=== PATIENT | male | born 1935 | race Caucasian/White ===

== ENCOUNTER → 2017-04-04 | Day surgery (SDC) | payer MEDICARE, BC ==
[2017-04-02 10:41] LABS: BASOPHILS % 0.4 % (0.0-1.0); EOSINOPHILS % 0.6 % (0.0-6.0); HEMATOCRIT 35.4 % (38.2-49.6); HEMOGLOBIN 11.6 g/dL (14.0-18.0); LYMPHOCYTES # (AUTO) 0.4 (1.0-3.2); LYMPHOCYTES % 8.4 % (18.0-39.1); MEAN CORPUSCULAR HEMOGLOBIN 34.9 pg (28-32); MEAN CORPUSCULAR HGB CONC 32.8 g/dL (31-35); MEAN CORPUSCULAR VOLUME 106.6 fL (81-99); MONOCYTES # (AUTO) 0.3 (0.2-0.8); MONOCYTES % 6.9 % (4.4-11.3); NEUTROPHILS # (AUTO) 3.9 (2.1-6.9); NEUTROPHILS % 82.8 % (38.7-80.0); PLATELET COUNT 157 x10e3/uL (140-360); RED BLOOD COUNT 3.32 x10e6/uL (4.3-5.7); RED CELL DISTRIBUTION WIDTH 13.5 % (11.7-14.4)
[~2017-04-04] MED LIST: ARTHROTEC EC 71 EACH PO; ASPIR 8181 MG PO; AZATHIOPRINE50 MG PO; CLONAZEPAM0.125 MG PO; CYANOCOBAL1000 MCG/M INJ; FERROUS SULFAT325 MG PO; FLOMAX0.4 MG PO; FLONASE; KETOROLAC TROME10 MG PO; LEVOTHYROXINE150 MCG PO; LEVOTHYROXINE175 MCG PO; LIDOCAINE HCL 2% LOCAL INJ 5 ML SDV VIAL INJ ONE; LISINOPRIL10 MG PO; MELATONIN PO; MIRAPEX0.5 MG PO; NORCO 5-325 TA1 EACH PO; PAROXETINE HCL20 MG PO; PAROXETINE HCL40 MG PO; PREDNISONE5 MG PO; PROPOFOL IV EMULSION 10 MG/ML 50 ML VIAL ONE; QUETIAPINE FUMA25 MG PO; ROPINIROLE HCL0.5 MG PO; ROPINIROLE HCL1 MG PO; SAW PALMETTO 1160 MG PO; SENNA LAX8.6 MG PO; TAMSULOSIN HCL0.4 MG PO; TESTOSTERO200 MG/1 M INJ; TRAZODONE HCL50 MG PO; TYLENOL # 31 EA PO; ULTRAM 50MG50 MG PO; XARELTO10 MG PO; ZYRTEC10 M3 PO
--- OUTSIDE RECORDS SUMMARY | 2017-04-04 05:27 | XMS REPORT | Clinical Summary ---
Author Author [facility] Organization [facility] Address Unknown Phone Unavailable Care Team Providers Care Box To[employer] Name Role Phone Fei Castle MD PCP Allergies Active Allergy Reactions Severity Noted Date Comments Unable To Assess 12/22/2015 H/O MG-any drug that blocks the neuromuscular junction and curare & its derivatives,morphine & other narcotics,tranquilizers,b arbiturates/anesthetics-e ther,halothane,methoxyflu yuli,gallamine,quinidine, pronestyle,quinine,tonic water,muscle relaxants,procainamide,pr opanolol,lidocaine,potass ium depleting diuretics,streptomycin,am inoglycosides,kanamycin,c olistin,gentamicin,geomyc in,viomycin,tobramycin,ne omycin,amikacin,sulfanomi frantz,tetracycline,cipro & quinolones insecticides-organophosph ates-parathion & ma Current Medications Prescription Sig. Disp. Refills Start End Date Status Date cyanocobalamin 1000 MCG Take 1,000 mcg by mouth Active tablet daily. azaTHIOprine (IMURAN) 50 Take 50 mg by mouth Active mg tablet daily. lisinopril Take 10 mg by mouth Active (PRINIVIL,ZESTRIL) 10 MG daily. tablet levothyroxine (SYNTHROID, Take 150 mcg by mouth Active LEVOTHROID) 150 MCG every morning. tablet ferrous sulfate 325 (65 Take 325 mg by mouth Active FE) MG tablet daily with breakfast. traMADol (ULTRAM) 50 mg Take 50 mg by mouth every Active tablet 6 (six) hours as needed for moderate pain. cycloSPORINE (RESTASIS) 1 drop 2 (two) times a Active 0.05 % ophthalmic day. emulsion azelastine (ASTELIN) 137 1 spray into each nostril Active mcg (0.1 %) nasal spray 2 (two) times a day. Use in each nostril as directed GLUCOSAMINE/MSM/CHONDROIT Take by mouth. Active SULF (GLUCOSAMINE [id number] ORAL) MELATONIN/PYRIDOXINE Take by mouth. Active (MELATONIN, WITH B6, ORAL) peg 400-propylene glycol, Apply to eye. Active PF, (SYSTANE, PF,) 0.4-0.3 % dropperette magnesium 30 mg tablet Take 30 mg by mouth 2 Active (two) times a day. light mineral oil-min Apply 1 drop to eye Active oil, PF, (RETAINE MGD, continuously as needed PF,) 0.5-0.5 % (As often as pt needs to dropperette use). cyanocobalamin 1,000 INJECT 1 ML IN THE MUSCLE 25 mL 2 06/07/19 Active mcg/mL injection OR VIA SUBCUTANEOUS ROUTE 17 ONCE A WEEK pramipexole (MIRAPEX) 0.5 TITRATE DIRECTED TO 60 tablet 4 01/22/20 Active MG tablet TWO (2) TABLETS BY MOUTH 17 AT 6:00 PM. pramipexole (MIRAPEX) 0.5 Take 0.5 mg by mouth 3 06/22/19 Discontin MG tablet (three) times a day. 17 ued predniSONE (DELTASONE) 5 TAKE ONE (1) TABLET(S) BY 120 tablet 4 02/22/19 mg tablet MOUTH FOUR TIMES A DAY. 17 18 pramipexole (MIRAPEX) 0.5 TITRATE DIRECTED TO 60 tablet 5 06/23/19 01/22/20 Discontin MG tablet TWO (2) TABLETS BY MOUTH 17 17 ued AT 6 PM. 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 12/28/2015 Encounters Date Type Specialty Care Team Description 04/01/2017 [facility] Blood Bank Deisi Logan MD Encounter 03/11/2017 [facility] Blood Bank Deisi Logan MD MG (myasthenia gravis); Encounter Myasthenia gravis 03/07/2017 [facility] Blood [facility] Deisi Logan MD Myasthenia gravis; Encounter Cecile Clancy MD MG (myasthenia gravis) 02/07/2017 [facility] Blood Bank Deisi Logan MD MG (myasthenia gravis); Encounter Myasthenia gravis 02/05/2017 Hospital Blood Bank Deisi Logan MD Myasthenia gravis Encounter 02/01/2017 Orders Only Blood Bank Deisi Logan MD MG (myasthenia gravis) 01/21/2017 Refill Neurology OnSesar main MD 01/07/2017 Hospital Blood Bank Deisi Logan MD Myasthenia gravis Encounter 01/04/2017 Hospital Blood Bank Deisi Logan MD No Show Encounter 01/04/2017 Orders Only Blood Bank Deisi Logan MD MG (myasthenia gravis) 12/13/2016 Hospital Blood Bank Deisi Logan MD MG (myasthenia gravis); Encounter Myasthenia gravis 12/11/2016 Hospital Blood Bank Carlin Land MD Canceled ( Treatment Plan Encounter Change) 12/10/2016 [facility] Blood Bank Myasthenia gravis Encounter 12/10/2016 Transcribe Blood Bank Deisi Logan MD MG (myasthenia gravis) Orders (Primary Dx) 11/08/2016 [facility] Blood Bank Cecile Clancy MD Myasthenia gravis Encounter 11/06/2016 Hospital Blood Bank Cecile Clancy MD Myasthenia gravis Encounter 11/01/2016 Transcribe Blood Bank Carlin Land MD Orders 10/15/2016 [facility] Blood Bank Cecile Clancy MD No Show Encounter 09/19/2016 Hospital Blood Cecile Ch MD Myasthenia gravis Encounter 09/17/2016 Hospital Blood Bank Cecile Clancy MD Myasthenia gravis Encounter 08/22/2016 Hospital Blood Bank Cecile Clancy MD Myasthenia gravis Encounter 08/20/2016 Hospital Blood Bank Cecile Clancy MD Myasthenia gravis Encounter 08/20/2016 Orders Only Kenny Price MD 07/25/2016 [facility] Blood Bank Cecile Clancy MD Encounter 07/23/2016 [facility] Blood Bank Cecile Clancy MD Encounter 07/04/2016 [facility] Blood Bank Cecile Clancy MD Encounter 07/04/2016 Transcribe Blood Bank Cecile Clancy MD Orders 07/02/2016 [facility] Blood Bank Cecile Clancy MD MG (myasthenia gravis) Encounter 06/21/2016 Refill Neurology Sesar Johnson MD 06/11/2016 [facility] Blood Bank Cecile Clancy MD Canceled ( Patient) Encounter 06/05/2016 Refill Neurology Cecile Clancy MD 05/23/2016 [facility] Blood Cecile Ch MD Canceled (No Show) Encounter 05/21/2016 [facility] Blood Cecile Ch MD No Show Encounter 05/08/2016 Office Visit Neurology Cecile Clancy MD 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) 05/04/2016 [facility] Blood Cecile Ch MD MG (myasthenia gravis) Encounter 05/03/2016 [facility] Blood Cecile Ch MD MG (myasthenia gravis) Encounter 04/11/2016 [facility] Blood Cecile Ch MD MG (myasthenia gravis) Encounter 04/09/2016 [facility] Blood Bank Cecile Clancy MD MG (myasthenia gravis) Encounter 04/09/2016 [facility] Blood [facility] Cecile Clancy MD Orders after 04/03/2016 Family History Medical History Relation Name Comments No Known Problems Mother Relation Name Status Comments Mother Social History Tobacco Use Types Packs/Day Years Used Date Former Smoker 1 25 Quit: 1978 Alcohol Use Drinks/Week oz/Week Comments No 2/DAY SOCIALLY Sex Assigned at Date Recorded Not on file Last Filed Vital Signs Vital Sign Reading Time Taken Blood Pressure 130/65 03/11/2017 10:55 AM HEALTH INFORMATION SPECIALIST Pulse 76 03/11/2017 10:55 AM HEALTH INFORMATION SPECIALIST Temperature 35.8 C (96.4 F) 03/11/2017 10:55 AM HEALTH INFORMATION SPECIALIST Respiratory Rate 18 03/11/2017 10:55 AM HEALTH INFORMATION SPECIALIST Oxygen Saturation 98% 03/11/2017 10:55 AM HEALTH INFORMATION SPECIALIST Inhaled Oxygen - - Concentration Weight 90.7 kg (200 lb) 03/11/2017 10:55 AM HEALTH INFORMATION SPECIALIST Height 177.8 cm (5' 10") 03/11/2017 10:55 AM HEALTH INFORMATION SPECIALIST Body Mass Index 28.7 03/11/2017 10:55 AM HEALTH INFORMATION SPECIALIST Plan of Treatment Date Type Specialty Care Team Description 04/08/2017 Appointment Blood Bank Deisi Logan MD [address] [address] [phone] 04/10/2017 Appointment Blood Bank Deisi Logan MD [address] [address] [phone] Health Maintenance Due Date Last Done Comments ZOSTER VACCINE 1996 PNEUMOCOCCAL 2001 POLYSACCHARIDE VACCINE AGE 65 AND OVER PNEUMOCOCCAL-13 2001 INFLUENZA VACCINE 09/18/2016 Implants Implanted Type Area Electrical Engineering Technician Device Expiration Model / Identifier Date Serial / Lot Screw Gleno Bsplt Lkng Mltdrctnl Distal Left: [employer] [id number] / 4.5x20mm Ns Aequalis - [id number] Joint Shoulder / Implanted: Qty: 2 on 12/28/2015 by Orthopedic Wally Monroe MD Implants Aequalis Reversed Glenoid Sphere - IPM Left: [employer]Map 07/27/2020 [id number] / For 25 Mm Baseplate2 Mm Eccentric IMPLANT Shoulder / 36 Mm - [id number] DEVICES [id number] Implanted: Qty: 1 on 12/28/2015 by Wally Monroe MD Ascend Flex Reversed Traycentered IPM Left: [employer]Map 10/05/2020 [id number] / Reversed Tray (+)0 - [id number] IMPLANT Shoulder / Implanted: Qty: 1 on 12/28/2015 by DEVICES [id number] Wally Monroe MD Ascend Flex Standard Ptc Humeral IPM Left: [employer]Map 08/03/2020 [id number] / Stems (Anatomic)5b Ascend Flex IMPLANT Shoulder / Standard Ptc Humeral Stem - DEVICES [id number] Implanted: Qty: 1 on 12/28/2015 by Wally Monroe MD Ascend Flex Standard Reversed IPM Left: [employer]epsMap 11/23/2020 [id number] / [id number] Diameter Standard IMPLANT Shoulder / Reversed Insert (+)6 - [id number] DEVICES [id number] Implanted: Qty: 1 on 12/28/2015 by Wally Monroe MD Baseplate Gleno Aequalis 25mm - Orthopedic Left: [employer] 2019 [id number] / [id number] Trauma Shoulder / Implanted: Qty: 1 on 12/28/2015 by Implants [id number] Wally Monroe MD Screw Bone Comp 4.5cm 20mm Ns Shoulder Left: [employer] [id number] / Aequalis - [id number] Joint Shoulder / Implanted: Qty: 1 on 12/28/2015 by Wally Valenzuela MD Cement Bone Full-Dose Premxd W/ Surgical Left: OLIVE 02/17/2017 [id number] Tobr Simplex P 1ea - [id number] Bone Shoulder ORTHOPEDICS / Implanted: Qty: 1 on 12/28/2015 by Cement HIPS-KNEES / Wally Monroe MD [id number] Procedures Procedure Name Priority Date/Time Associated Diagnosis Comments THERAPEUTIC PLASMA Routine 03/07/2017 Myasthenia gravis Results for this EXCHANGE 2:59 PM HEALTH INFORMATION SPECIALIST procedure are in the results section. THERAPEUTIC PLASMA Routine 02/07/2017 Myasthenia gravis Results for this EXCHANGE 5:03 PM HEALTH INFORMATION SPECIALIST procedure are in the results section. THERAPEUTIC PLASMA Routine 02/05/2017 MG (myasthenia gravis) Results for this EXCHANGE 5:34 PM HEALTH INFORMATION SPECIALIST procedure are in the results section. THERAPEUTIC PLASMA Routine 01/08/2017 Myasthenia gravis Results for this EXCHANGE 7:41 AM HEALTH INFORMATION SPECIALIST procedure are in the results section. THERAPEUTIC PLASMA Routine 12/13/2016 MG (myasthenia gravis) Results for this EXCHANGE 4:18 PM CDT procedure are in the results section. THERAPEUTIC PLASMA Routine 09/19/2016 Myasthenia gravis Results for this EXCHANGE 10:35 AM CDT procedure are in the results section. THERAPEUTIC PLASMA Routine 09/17/2016 Myasthenia gravis Results for this EXCHANGE 10:39 AM CDT procedure are in the results section. THERAPEUTIC PLASMA Routine 08/22/2016 Results for this EXCHANGE 5:59 PM CDT procedure are in the results section. THERAPEUTIC PLASMA Routine 08/20/2016 Results for this EXCHANGE 6:11 PM CDT procedure are in the results section. THERAPEUTIC PLASMA Routine 07/04/2016 Results for this EXCHANGE 1:42 PM CDT procedure are in the results section. THERAPEUTIC PLASMA Routine 07/02/2016 MG (myasthenia gravis) Results for this EXCHANGE 12:53 PM CDT procedure are in the results section. THERAPEUTIC PLASMA Routine 07/02/2016 Results for this EXCHANGE 12:53 PM CDT procedure are in the results section. THERAPEUTIC PLASMA Routine 05/04/2016 MG (myasthenia gravis) Results for this EXCHANGE 6:08 PM CDT procedure are in the results section. THERAPEUTIC PLASMA Routine 05/03/2016 MG (myasthenia gravis) Results for this EXCHANGE 6:28 PM CDT procedure are in the results section. THERAPEUTIC PLASMA Routine 04/11/2016 Results for this EXCHANGE 3:00 PM HEALTH INFORMATION SPECIALIST procedure are in the results section. THERAPEUTIC PLASMA Routine 04/09/2016 Results for this EXCHANGE 8:15 PM HEALTH INFORMATION SPECIALIST procedure are in the results section. after 04/03/2016 Results * Estimated GFR (03/11/2017 11:31 AM) Only the most recent of 3 results within the time period is included. Component Value Ref Range GFR Non Af Amer 72 mL/min/1.73 m2 GFR Af Amer 87 mL/min/1.73 m2 Comment: Chronic kidney disease: <60 mL/min/1.73m2 Kidney failure: <15 mL/min/1.73m2 The estimated GFR is calculated from the IDMS-traceable Modification of Diet in Renal Disease Equation. The accuracy of the calculation is poor when the creatinine is normal. Calculated values >90 mL/min/1.73m2 are not reported. This equation has not been validated in children (<18 years), women, the elderly (>70 years), or ethnic groups other than Caucasians and Americans. Specimen Performing Laboratory Plasma specimen [facility] DEPARTMENT OF PATHOLOGY AND GENOMIC MEDICINE [address] [place] [id number] * Ionized calcium (03/11/2017 11:31 AM) Component Value Ref Range pH 7.36 Ionized calcium 1.17 1.11 - 1.32 mmol/L Specimen Performing Laboratory Plasma specimen [facility] DEPARTMENT OF PATHOLOGY AND GENOMIC MEDICINE [address] [place] [id number] * Basic metabolic panel (03/11/2017 11:31 AM) Only the most recent of 2 results within the time period is included. Component Value Ref Range Sodium 142 135 - 148 mEq/L Potassium 4.2 3.5 - 5.0 mEq/L Chloride 103 98 - 112 mEq/L CO2 27 24 - 31 mEq/L Anion gap 12 7 - 15 mEq/L Comment: Starting from May , anion gap calculation no longer incorporates potassium. Please note the change. BUN 21 8 - 23 mg/dL Creatinine 1.0 0.7 - 1.2 mg/dL Glucose 97 65 - 99 mg/dL Calcium 9.0 8.8 - 10.2 mg/dL Specimen Performing Laboratory Plasma specimen [facility] DEPARTMENT OF PATHOLOGY AND GENOMIC MEDICINE [address] [place] [address] * CBC with platelet and differential (03/11/2017 11:29 AM) Only the most recent of 2 results within the time period is included. Component Value Ref Range WBC 5.69 4.50 - 11.00 k/uL RBC 3.28 (L) 4.40 - 6.00 m/uL HGB 11.1 (L) 14.0 - 18.0 g/dL HCT 34.4 (L) 41.0 - 51.0 % MCV 104.9 (H) 82.0 - 100.0 fL MCH 33.8 27.0 - 34.0 pg MCHC 32.3 31.0 - 37.0 g/dL RDW - SD 49.6 37.0 - 55.0 fL MPV 12.5 8.8 - 13.2 fL Platelet count 158 150 - 400 k/uL Nucleated RBC 0.00 /100 WBC Neutrophils 73.4 (H) 39.0 - 69.0 % Lymphocytes 15.8 (L) 25.0 - 45.0 % Monocytes 6.9 0.0 - 10.0 % Eosinophils 2.8 0.0 - 5.0 % Basophils 0.2 0.0 - 1.0 % Immature granulocytes 0.9Comment: "Immature granulocytes" 0.0 - 1.0 % (promyelocytes, myelocytes, metamyelocytes) Specimen Performing Laboratory [facility] DEPARTMENT OF PATHOLOGY AND [facility] MEDICINE [address] [place] [id number] * Plasma exchange (03/11/2017 11:19 AM) Only the most recent of 21 results within the time period is included. Component Value Ref Range Plasma exchange Done Specimen Performing Laboratory [facility] DEPARTMENT OF PATHOLOGY AND GENOMIC MEDICINE [address] [place] [address], [place] [address] * Therapeutic plasma exchange (03/07/2017 2:59 PM) Narrative Shala Raya MD 03/07/20172:59 PM Clinical Pathology Apheresis Procedure Note Consulting Physician: Shala Raya Date of Service: 03/07/2017 Access: Peripheral IV Access Site: Left Upper Extremity Procedure: Therapeutic Plasma Exchange (TPE): 5% Albumin in normal saline with 4 mEq potassium chloride and 4.6 mEq calcium gluconate Pre/Ursula-Procedural Medication: No medications Indication for Procedure: Myasthenia Gravis Planned Apheresis Schedule: 2 TPEs every 3 weeks Subjective Domi Fiore is a 81 y.o. male receiving TPE for maintenance of Myasthenia Gravis. The patient complains of bilateral lower extremity lymphedema. He feels this is controlled with compression stockings. He denies any weakness, shortness of breath, or difficulty swallowing. No significant interval change. Current Outpatient Prescriptions Medication pramipexole cyanocobalamin light mineral oil-min oil (PF) azaTHIOprine azelastine cyanocobalamin cycloSPORINE ferrous sulfate GLUCOSAMINE/MSM/CHONDROIT SULF (GLUCOSAMINE [id number] ORAL) levothyroxine lisinopril magnesium MELATONIN/PYRIDOXINE (MELATONIN, WITH B6, ORAL) peg 400-propylene glycol (PF) traMADol Current Facility-Administered Medications Medication Dose Route Frequency lidocaine PF0.3 mL injection Once PRN Allergies Allergen Reactions Unable To Assess H/O MG-any drug that blocks the neuromuscular junction and curare & its derivatives,morphine & other narcotics,tranquilizers,barbiturates/anesthetics-ether,halothane,m ethoxyflurane,gallamine,quinidine,pronestyle,quinine,tonic water,muscle relaxants,procainamide,propanolol,lidocaine,potassium depleting diuretics,streptomycin,aminoglycosides,kanamycin,colistin,gentamic in,geomycin,viomycin,tobramycin,neomycin,amikacin,sulfanomides,tet racycline,cipro & quinolones [id number]-zbvjzebhwxlklwkg-fylavyjjy & ma Objective Physical Exam Vital Signs: General Appearance: Awake, alert, oriented HEENT Unremarkable Chest Deferred Cardiovascular Deferred Abdomen Deferred Extremities Deferred, patient is using bilateral lower extremity compression stockings Skin Ecchymosis in bilateral upper extremities Assessment/Plan Mr. Fiore is an 81 year old male receiving maintenance TPE #1/2 for Myasthenia Gravis. He tolerated the procedure without complications, with 3 L of 5% albumin. He will RTC for his next TPE procedure on Saturday. Shala Raya MD Date/Time:03/07/2017, 2:56 PM * Therapeutic plasma exchange (02/07/2017 5:03 PM) Narrative Shala Raya MD 02/07/20175:03 PM Clinical Pathology Apheresis Procedure Note Consulting Physician: Shala Raya Date of Service: 02/07/2017 Access: Peripheral IV Access Site: Left Upper Extremity Procedure: Therapeutic Plasma Exchange (TPE): 5% Albumin in normal saline with 4 mEq potassium chloride and 4.6 mEq calcium gluconate Pre/Ursula-Procedural Medication: No medications Indication for Procedure: Myasthenia Gravis Planned Apheresis Schedule: 2 TPEs every 3 weeks Subjective Domi Fiore is a 81 y.o. male receiving TPE for maintenance of Myasthenia Gravis. The patient complains of bilateral lower extremity lymphedema. He feels this is controlled with compression stockings. He denies any weakness, shortness of breath, or difficulty swallowing. Current Outpatient Prescriptions Medication pramipexole cyanocobalamin light mineral oil-min oil (PF) predniSONE azaTHIOprine azelastine cyanocobalamin cycloSPORINE ferrous sulfate GLUCOSAMINE/MSM/CHONDROIT SULF (GLUCOSAMINE [id number] ORAL) levothyroxine lisinopril magnesium MELATONIN/PYRIDOXINE (MELATONIN, WITH B6, ORAL) peg 400-propylene glycol (PF) traMADol Current Facility-Administered Medications Medication Dose Route Frequency albumin 5% + calcium gluconate 4.6 mEq/L + potassium chloride 4 mEq/L1,000 mL intravenous Q1H anticoagulant citrate dextrose1,000 mL extracorporeal Once lidocaine PF0.3 mL injection Once PRN sodium chloride1,000 mL intravenous Once Allergies Allergen Reactions Unable To Assess H/O MG-any drug that blocks the neuromuscular junction and curare & its derivatives,morphine & other narcotics,tranquilizers,barbiturates/anesthetics-ether,halothane,m ethoxyflurane,gallamine,quinidine,pronestyle,quinine,tonic water,muscle relaxants,procainamide,propanolol,lidocaine,potassium depleting diuretics,streptomycin,aminoglycosides,kanamycin,colistin,gentamic in,geomycin,viomycin,tobramycin,neomycin,amikacin,sulfanomides,tet racycline,cipro & quinolones [id number]-utqblhkodonqyezp-eqpoaafiw & ma Objective Physical Exam Vital Signs: General Appearance: Awake, alert, oriented HEENT Unremarkable Chest Deferred Cardiovascular Deferred Abdomen Deferred Extremities Deferred, patient is using bilateral lower extremity compression stockings Skin Ecchymosis in bilateral upper extremities Assessment/Plan Mr. Fiore is an 81 year old male receiving maintenance TPE #2/2 for Myasthenia Gravis. He tolerated the procedure without complications, with 3 L of 5% albumin. He will RTC for his next TPE procedure in three weeks. Franco Curry MD, PGY-4 Date/Time:02/07/2017, 11:54 AM I have reviewed the notes, assessments, and/or procedures performed by Dr. Curry, I concur with her/his documentation of Domi Fiore. Shala Raya MD * Therapeutic apheresis for plasma (02/05/2017 5:34 PM) Narrative Shala Raya MD 02/05/20175:34 PM Clinical Pathology Apheresis Procedure Note Consulting Physician: Shala Raya Date of Service: 02/05/2017 Access: Peripheral IV Access Site: Left Upper Extremity Procedure: Therapeutic Plasma Exchange (TPE): 5% Albumin in normal saline with 4 mEq potassium chloride and 4.6 mEq calcium gluconate Pre/Ursula-Procedural Medication: No medications Indication for Procedure: Myasthenia Gravis Planned Apheresis Schedule: 2 TPEs every 3 weeks Subjective Domi Fiore is a 81 y.o. male receiving TPE for maintenance of Myasthenia Gravis. The patient complains of bilateral lower extremity lymphedema. He feels this is controlled with compression stockings. He states he has seasonal allergies but feels otherwise well today and denies any weakness, shortness of breath, or difficulty swallowing. Current Outpatient Prescriptions Medication pramipexole cyanocobalamin light mineral oil-min oil (PF) predniSONE azaTHIOprine azelastine cyanocobalamin cycloSPORINE ferrous sulfate GLUCOSAMINE/MSM/CHONDROIT SULF (GLUCOSAMINE [id number] ORAL) levothyroxine lisinopril magnesium MELATONIN/PYRIDOXINE (MELATONIN, WITH B6, ORAL) peg 400-propylene glycol (PF) traMADol No current facility-administered medications for this encounter. Allergies Allergen Reactions Unable To Assess H/O MG-any drug that blocks the neuromuscular junction and curare & its derivatives,morphine & other narcotics,tranquilizers,barbiturates/anesthetics-ether,halothane,m ethoxyflurane,gallamine,quinidine,pronestyle,quinine,tonic water,muscle relaxants,procainamide,propanolol,lidocaine,potassium depleting diuretics,streptomycin,aminoglycosides,kanamycin,colistin,gentamic in,geomycin,viomycin,tobramycin,neomycin,amikacin,sulfanomides,tet racycline,cipro & quinolones xkayaslhzkzf-moeklrluwlbtqojj-ripbkqvty & ma Objective Physical Exam Vital Signs: General Appearance: Awake, alert, oriented HEENT Unremarkable Chest Clear Cardiovascular Regular rate and rhythm Abdomen Soft and Non-tender Extremities Deferred, patient is using bilateral lower extremity compression stockings Skin Ecchymosis in bilateral upper extremities Assessment/Plan Mr. Fiore is an 81 year old male receiving maintenance TPE #1 for Myasthenia Gravis. He tolerated the procedure without complications, with 3 L of 5% albumin. Lou Huerta MD, PGY-4 Date/Time:02/05/2017, 11:30 AM I have reviewed the notes, assessments, and/or procedures performed by Dr Huerta, I concur with his documentation of Domi Fiore. Shala Raya MD * Therapeutic plasma exchange (01/08/2017 7:41 AM) Narrative Iam Yuen MD 01/08/20177:41 AM Clinical Pathology Apheresis Procedure Note Consulting Physician: Iam Yuen Date of Service: 01/07/2017 Access: Peripheral IV Access Site: Left Upper Extremity Procedure: Therapeutic Plasma Exchange (TPE): 5% Albumin in normal saline with 4 mEq potassium chloride and 4.6 mEq calcium gluconate Pre/Ursula-Procedural Medication: No medications Indication for Procedure: Myasthenia Gravis Planned Apheresis Schedule: 2 TPEs every 3 weeks Subjective Domi Fiore is a 81 y.o. male receiving TPE for maintenance of Myasthenia Gravis. The patient complains of bilateral lower extremity lymphedema and upper extremity ecchymosis, which he attributes to side effects of Prednisone and states that his neurologist is tapering down the dose of prednisone. He states he feels otherwise well today and denies any weakness, shortness of breath, or difficulty swallowing. Current Outpatient Prescriptions Medication pramipexole cyanocobalamin light mineral oil-min oil (PF) predniSONE azaTHIOprine azelastine cyanocobalamin cycloSPORINE ferrous sulfate GLUCOSAMINE/MSM/CHONDROIT SULF (GLUCOSAMINE [id number] ORAL) levothyroxine lisinopril magnesium MELATONIN/PYRIDOXINE (MELATONIN, WITH B6, ORAL) peg 400-propylene glycol (PF) traMADol Current Facility-Administered Medications Medication Dose Route Frequency albumin 5% + calcium gluconate 4.6 mEq/L + potassium chloride 4 mEq/L1,000 mL intravenous Q1H lidocaine PF0.3 mL injection Once PRN Allergies Allergen Reactions Unable To Assess H/O MG-any drug that blocks the neuromuscular junction and curare & its derivatives,morphine & other narcotics,tranquilizers,barbiturates/anesthetics-ether,halothane,m ethoxyflurane,gallamine,quinidine,pronestyle,quinine,tonic water,muscle relaxants,procainamide,propanolol,lidocaine,potassium depleting diuretics,streptomycin,aminoglycosides,kanamycin,colistin,gentamic in,geomycin,viomycin,tobramycin,neomycin,amikacin,sulfanomides,tet racycline,cipro & quinolones atppoewjmqis-tqjxziwddsyaprmp-yfmiaeeff & ma Objective Physical Exam Vital Signs: General Appearance: Awake, alert, oriented HEENT Unremarkable Chest Clear Cardiovascular Regular rate and rhythm Abdomen Soft and Non-tender Extremities Deferred, patient is using bilateral lower extremity compression stockings Skin Ecchymosis in bilateral upper extremities Assessment/Plan Mr. Fiore is an 81 year old male receiving maintenance TPE #1 for Myasthenia Gravis. He tolerated the procedure without complications , with 3 L of 5% albumin. Lorenza Powell MD, PGY-3Date/Time:01/07/2017, 11:33 AM I have reviewed the notes, assessments, and/or procedures performed by Dr. Powell, I concur with her/his documentation of Domi Fiore. * Therapeutic apheresis for plasma (12/13/2016 4:18 PM) Narrative Kenny Silveira MD 12/13/20164:18 PM Clinical Pathology Apheresis Procedure Note Consulting Physician: Kenny Silveira Date of Service: 12/13/2016 Access: Peripheral IV Access Site: Left Upper Extremity Procedure: Therapeutic Plasma Exchange (TPE): 5% Albumin in normal saline with 4 mEq potassium chloride and 4.6 mEq calcium gluconate Pre/Ursula-Procedural Medication: none Indication for Procedure: Myasthenia Gravis Planned Apheresis Schedule: 2 TPEs every 3 weeks. Subjective Domi Fiore is a 81 y.o. male with MG who receives TPE for maintenance. Patient reports stable symptoms. Some issues with balance noted as he walked into clinic. No recent falls. Nonpitting edema up to both ankles present. He indicates this is a chronic issue. There are no active hospital problems to display for this patient. (Not in a hospital admission) Current Outpatient Prescriptions Medication pramipexole cyanocobalamin light mineral oil-min oil (PF) predniSONE azaTHIOprine azelastine cyanocobalamin cycloSPORINE ferrous sulfate GLUCOSAMINE/MSM/CHONDROIT SULF (GLUCOSAMINE [id number] ORAL) levothyroxine lisinopril magnesium MELATONIN/PYRIDOXINE (MELATONIN, WITH B6, ORAL) peg 400-propylene glycol (PF) traMADol Current Facility-Administered Medications Medication Dose Route Frequency lidocaine PF0.3 mL injection Once PRN Allergies Allergen Reactions Unable To Assess H/O MG-any drug that blocks the neuromuscular junction and curare & its derivatives,morphine & other narcotics,tranquilizers,barbiturates/anesthetics-ether,halothane,m ethoxyflurane,gallamine,quinidine,pronestyle,quinine,tonic water,muscle relaxants,procainamide,propanolol,lidocaine,potassium depleting diuretics,streptomycin,aminoglycosides,kanamycin,colistin,gentamic in,geomycin,viomycin,tobramycin,neomycin,amikacin,sulfanomides,tet racycline,cipro & quinolones xhznvhgkjxic-ttmmkjiegkcuormk-majgtcitt & ma Objective Physical Exam Vital Signs: (see apheresis procedure note). General Appearance: Awake, alert, oriented HEENT Unremarkable Chest Clear Cardiovascular Deferred Abdomen Deferred Extremities Unremarkable Skin Unremarkable Labs/Radiology/Diagnostics Results for DOMI FIORE ( ) as of 11/07/2016 17:08 Ref. Range 09/19/2016 08:54 Sodium Latest Ref Range: 135 - 148 mEq/L 139 Potassium Latest Ref Range: 3.5 - 5.0 mEq/L 3.7 Chloride Latest Ref Range: 98 - 112 mEq/L 103 CO2 Latest Ref Range: 24 - 31 mEq/L 23 (L) Anion gap Latest Ref Range: 7 - 15 mEq/L 13 BUN Latest Ref Range: 8 - 23 mg/dL 17 Creatinine Latest Ref Range: 0.7 - 1.2 mg/dL 1.0 Glucose Latest Ref Range: 65 - 99 mg/dL 100 (H) Calcium Latest Ref Range: 8.8 - 10.2 mg/dL 8.5 (L) GFR Non Af Amer Latest Units: mL/min/1.73 m2 72 GFR Af Amer Latest Units: mL/min/1.73 m2 87 Protein Latest Ref Range: 6.3 - 8.3 g/dL 5.7 (L) Albumin Latest Ref Range: 3.5 - 5.0 g/dL 4.0 A/G ratio Latest Ref Range: 0.7 - 3.82.4 Alkaline phosphatase Latest Ref Range: 40 - 129 U/L 39 (L) ALT Latest Ref Range: 5 - 50 U/L 12 AST Latest Ref Range: 10 - 50 U/L 15 Total bilirubin Latest Ref Range: 0.0 - 1.2 mg/dL 0.7 Results for DOMI FIORE ( ) as of 11/07/2016 17:08 Ref. Range 08/20/2016 09:14 WBC Latest Ref Range: 4.50 - 11.00 k/uL 6.01 RBC Latest Ref Range: 4.40 - 6.00 m/uL 3.02 (L) HGB Latest Ref Range: 14.0 - 18.0 g/dL 9.9 (L) HCT Latest Ref Range: 41.0 - 51.0 % 31.3 (L) MCV Latest Ref Range: 82.0 - 100.0 fL 103.6 (H) MCH Latest Ref Range: 27.0 - 34.0 pg 32.8 MCHC Latest Ref Range: 31.0 - 37.0 g/dL 31.6 RDW - SD Latest Ref Range: 37.0 - 55.0 fL 55.9 (H) Mean platelet volume Latest Ref Range: 8.8 - 13.2 fL 12.1 Platelet count Latest Ref Range: 150 - 400 k/uL 191 Neutrophils Latest Ref Range: 39.0 - 69.0 % 80.3 (H) Lymphocytes Latest Ref Range: 25.0 - 45.0 % 12.1 (L) Monocytes Latest Ref Range: 0.0 - 10.0 % 5.3 Eosinophils Latest Ref Range: 0.0 - 5.0 % 1.2 Basophils Latest Ref Range: 0.0 - 1.0 % 0.3 Immature granulocytes Latest Ref Range: 0.0 - 1.0 % 0.8 Nucleated RBC Latest Units: /100 WBC 0.00 Assessment/Plan Mr. Fiore is a 80 year old man with myasthenia gravis.He underwent TPE #2 of 2 without any complications with 4L of 5% albumin. Attending Signature: Kenny Silveira MD Date/Time:12/13/2016, 4:16 PM * Therapeutic plasma exchange (09/19/2016 10:35 AM) Narrative Shala Raya MD 09/19/2016 10:35 AM Clinical Pathology Apheresis Procedure Note Consulting Physician: Shala Raya Date of Service: 09/19/2016 Access: Peripheral IV Access Site: Left Upper Extremity Procedure: Therapeutic Plasma Exchange (TPE): 5% Albumin in normal saline with 4 mEq potassium chloride and 4.6 mEq calcium gluconate Pre/Ursula-Procedural Medication: none Indication for Procedure: Myasthenia Gravis Planned Apheresis Schedule: 2 TPEs every 3 weeks. Subjective Domi Fiore is a 80 y.o. male with MG who receives TPE for maintenance. He spoke with his PCP regarding the elevated potassium and was told not to be concerned.He is anemic and was previously at 11.0 g/dL (11 month ago).He stopped his daily B-12 shots. We will monitor his hemoglobin level for now. He reports continued ptosis, diplopia and fatigue. Today, his potasium level is 3.7 (WNL). There are no active hospital problems to display for this patient. (Not in a hospital admission) Current Outpatient Prescriptions Medication pramipexole cyanocobalamin light mineral oil-min oil (PF) predniSONE azaTHIOprine azelastine cyanocobalamin cycloSPORINE ferrous sulfate GLUCOSAMINE/MSM/CHONDROIT SULF (GLUCOSAMINE [id number] ORAL) levothyroxine lisinopril magnesium MELATONIN/PYRIDOXINE (MELATONIN, WITH B6, ORAL) peg 400-propylene glycol (PF) traMADol Current Facility-Administered Medications Medication Dose Route Frequency albumin 5% + calcium gluconate 4.6 mEq/L + potassium chloride 4 mEq/L1,000 mL intravenous Q1H anticoagulant citrate dextrose1,000 mL extracorporeal Once lidocaine PF0.3 mL injection Once PRN sodium chloride1,000 mL intravenous Once Allergies Allergen Reactions Unable To Assess H/O MG-any drug that blocks the neuromuscular junction and curare & its derivatives,morphine & other narcotics,tranquilizers,barbiturates/anesthetics-ether,halothane,m ethoxyflurane,gallamine,quinidine,pronestyle,quinine,tonic water,muscle relaxants,procainamide,propanolol,lidocaine,potassium depleting diuretics,streptomycin,aminoglycosides,kanamycin,colistin,gentamic in,geomycin,viomycin,tobramycin,neomycin,amikacin,sulfanomides,tet racycline,cipro & quinolones lnhpnnkqncwt-bgwiywonrsegzgji-jhdijutqh & ma Objective Physical Exam Vital Signs: (see apheresis procedure note). General Appearance: Awake, alert, oriented HEENT Unremarkable Chest Clear Cardiovascular Deferred Abdomen Deferred Extremities Unremarkable Skin Unremarkable Labs/Radiology/Diagnostics CBC: COAG: CHEM: IMMUN: ABO: Assessment/Plan Mr. Fiore is a 80 year old man with myasthenia gravis.He underwent TPE #2 of 2 without any complications with 4L of 5% albumin. He will visit with his PCP regarding his anemia.He will RTC in 3 weeks. Attending Signature: HARVEY Velasquezate/Time:09/19/2016, 9:30 AM * Comprehensive metabolic panel (09/19/2016 8:54 AM) Component Value Ref Range Sodium 139 135 - 148 mEq/L Potassium 3.7 3.5 - 5.0 mEq/L Chloride 103 98 - 112 mEq/L CO2 23 (L) 24 - 31 mEq/L Anion gap 13 7 - 15 mEq/L Comment: Starting from May , anion gap calculation no longer incorporates potassium. Please note the change. BUN 17 8 - 23 mg/dL Creatinine 1.0 0.7 - 1.2 mg/dL Glucose 100 (H) 65 - 99 mg/dL Calcium 8.5 (L) 8.8 - 10.2 mg/dL Protein 5.7 (L) 6.3 - 8.3 g/dL Comment: 4.6-7.0 g/dL 1 week 4.4-7.6 g/dL 7 months-1year 5.1-7.3 g/dL 1-2 years 5.6-7.5 g/dL >3 years 6.0-8.0 g/dL 18-150 6.3-8.3 g/dL Albumin 4.0 3.5 - 5.0 g/dL A/G ratio 2.4 0.7 - 3.8 Alkaline phosphatase 39 (L) 40 - 129 U/L AST 15 10 - 50 U/L ALT 12 5 - 50 U/L Total bilirubin 0.7 0.0 - 1.2 mg/dL Specimen Performing Laboratory Plasma specimen [facility] [address] [place] [address] * Therapeutic plasma exchange (09/17/2016 10:39 AM) Martín Raya MD 09/17/2016 10:39 AM Clinical Pathology Apheresis Procedure Note Consulting Physician: Shala Raya Date of Service: 09/17/2016 Access: Peripheral IV Access Site: Left Upper Extremity Procedure: Therapeutic Plasma Exchange (TPE): 5% Albumin in normal saline with 4 mEq potassium chloride and 4.6 mEq calcium gluconate Pre/Ursula-Procedural Medication: none Indication for Procedure: Myasthenia Gravis Planned Apheresis Schedule: 2 TPEs every 3 weeks. Isma Fiore is a 80 y.o. male with MG who receives TPE for maintenance. He spoke with his PCP regarding the elevated potassium and was told not to be concerned.He is anemic and was previously at 11.0 g/dL (11 month ago).He stopped his daily B-12 shots. We will monitor his hemoglobin level for now. He reports continued ptosis, diplopia and fatigue. There are no active hospital problems to display for this patient. (Not in a hospital admission) Current Outpatient Prescriptions Medication pramipexole cyanocobalamin light mineral oil-min oil (PF) predniSONE azaTHIOprine azelastine cyanocobalamin cycloSPORINE ferrous sulfate GLUCOSAMINE/MSM/CHONDROIT SULF (GLUCOSAMINE [id number] ORAL) levothyroxine lisinopril magnesium MELATONIN/PYRIDOXINE (MELATONIN, WITH B6, ORAL) peg 400-propylene glycol (PF) traMADol Current Facility-Administered Medications Medication Dose Route Frequency albumin 5% + calcium gluconate 4.6 mEq/L + potassium chloride 4 mEq/L1,000 mL intravenous Q1H anticoagulant citrate dextrose1,000 mL extracorporeal Once lidocaine PF0.3 mL injection Once PRN sodium chloride1,000 mL intravenous Once Allergies Allergen Reactions Unable To Assess H/O MG-any drug that blocks the neuromuscular junction and curare & its derivatives,morphine & other narcotics,tranquilizers,barbiturates/anesthetics-ether,halothane,m ethoxyflurane,gallamine,quinidine,pronestyle,quinine,tonic water,muscle relaxants,procainamide,propanolol,lidocaine,potassium depleting diuretics,streptomycin,aminoglycosides,kanamycin,colistin,gentamic in,geomycin,viomycin,tobramycin,neomycin,amikacin,sulfanomides,tet racycline,cipro & quinolones epbapalrmtdz-hufdnldgaetxltdo-zljnxrnpz & ma Objective Physical Exam Vital Signs: (see apheresis procedure note). General Appearance: Awake, alert, oriented HEENT Unremarkable Chest Clear Cardiovascular Deferred Abdomen Deferred Extremities Unremarkable Skin Unremarkable Labs/Radiology/Diagnostics CBC: COAG: CHEM: IMMUN: ABO: Assessment/Plan Mr. Fiore is a 80 year old man with myasthenia gravis.He underwent TPE #1 of 2 without any complications with 4L of 5% albumin. He will visit with his PCP regarding his anemia.He will RTC on Saturday. Attending Signature: HARVEY Velasquezate/Time:09/17/2016, 10:28 AM * Therapeutic plasma exchange (08/22/2016 5:59 PM) Narrative Kenny Silveira MD 08/22/20165:59 PM Clinical Pathology Apheresis Procedure Note Consulting Physician: Kenny Silveira Date of Service: 08/22/2016 Access: Peripheral IV Access Site: Right Upper Extremity Procedure: Therapeutic Plasma Exchange (TPE): 5% Albumin in normal saline with 4 mEq potassium chloride and 4.6 mEq calcium gluconate Pre/Ursula-Procedural Medication: none Indication for Procedure: Myasthenia Gravis Planned Apheresis Schedule: 2 TPEs every 3 weeks. Subjective Domi Fiore is a 80 y.o. male with MG who receives TPE for maintenance. The last time that he was here, his potassium level was elevated (5.6) and he had a macrocytic anemia. We repeated the potassium today and it was still a little elevated (5.1). We also tested him for ferritin level, B-12 level and Folate. The B-12 was elevated (he gives himself a B-12 shot every day) but the ferritin and folate levels were WNL. I recommended that he call his primary doctor, who manages his hypertension, to discuss the potassium level since there was a recent change in medications. We will monitor his hemoglobin level for now. There are no active hospital problems to display for this patient. (Not in a hospital admission) Current Outpatient Prescriptions Medication pramipexole cyanocobalamin light mineral oil-min oil (PF) predniSONE azaTHIOprine azelastine cyanocobalamin cycloSPORINE ferrous sulfate GLUCOSAMINE/MSM/CHONDROIT SULF (GLUCOSAMINE [id number] ORAL) levothyroxine lisinopril magnesium MELATONIN/PYRIDOXINE (MELATONIN, WITH B6, ORAL) peg 400-propylene glycol (PF) traMADol Current Facility-Administered Medications Medication Dose Route Frequency anticoagulant citrate dextrose1,000 mL extracorporeal Once lidocaine PF0.3 mL injection Once PRN sodium chloride1,000 mL intravenous Once Allergies Allergen Reactions Unable To Assess H/O MG-any drug that blocks the neuromuscular junction and curare & its derivatives,morphine & other narcotics,tranquilizers,barbiturates/anesthetics-ether,halothane,m ethoxyflurane,gallamine,quinidine,pronestyle,quinine,tonic water,muscle relaxants,procainamide,propanolol,lidocaine,potassium depleting diuretics,streptomycin,aminoglycosides,kanamycin,colistin,gentamic in,geomycin,viomycin,tobramycin,neomycin,amikacin,sulfanomides,tet racycline,cipro & quinolones rgknoixgvadh-ianafhkzejjivirq-suizheytl & ma Objective Physical Exam Vital Signs: (see apheresis procedure note). General Appearance: Awake, alert, oriented HEENT Unremarkable Chest Clear Cardiovascular Deferred Abdomen Deferred Extremities Unremarkable Skin Unremarkable Labs/Radiology/Diagnostics CBC: Results from last 7 days Lab Units 08/20/16 0914 WBC k/uL 6.01 HEMOGLOBIN g/dL 9.9* HEMATOCRIT % 31.3* PLATELET COUNT k/uL 191 COAG: CHEM: Results from last 7 days Lab Units 08/20/16 0914 CALCIUM mg/dL 9.3 BUN mg/dL 39* CREATININE mg/dL 1.1 IMMUN: ABO: Assessment/Plan Continue current regimen. Attending Signature: Kenny Silveira MD Date/Time:08/22/2016, 5:52 PM * Potassium level (08/22/2016 12:39 PM) Component Value Ref Range Potassium 5.1 (H) 3.5 - 5.0 mEq/L Specimen Performing Laboratory Plasma specimen [facility] [address] [place] [id number] * Folate level (08/22/2016 12:39 PM) Component Value Ref Range Folate 9.0 4.8 - 24.2 ng/mL Specimen Performing Laboratory Serum [facility]PART[facility] OF PATHOLOGY AND [facility] MEDICINE [address] [place] [phone] * Ferritin level (08/22/2016 12:39 PM) Component Value Ref Range Ferritin level 156 30 - 400 ng/mL Specimen Performing Laboratory Plasma specimen [facility] [address] [place] [phone] * Vitamin B12 level (08/22/2016 12:39 PM) Component Value Ref Range Vitamin B12 1,569 (H) 211 - 946 pg/mL Comment: Significant overlap exists between normal and deficiency states. However, most patients with deficiencies will have Serum B12 <200 pg/mL. Specimen Performing Laboratory Serum [facility] OF PATHOLOGY AND [facility] [address] [place] [phone] * Therapeutic plasma exchange (08/20/2016 6:11 PM) Narrative Kenny Silveira MD 08/20/20166:11 PM Clinical Pathology Apheresis Procedure Note Consulting Physician: Kenny Silveira Date of Service: 08/20/2016 Access: Peripheral IV Access Site: Right Upper Extremity Procedure: Therapeutic Plasma Exchange (TPE): 5% Albumin in normal saline with 4 mEq potassium chloride and 4.6 mEq calcium gluconate Pre/Ursula-Procedural Medication: none Indication for Procedure: Myasthenia Gravis Planned Apheresis Schedule: 2 TPEs every 3 weeks. Isma Fiore is a 80 y.o. male with MG who receives TPE for maintenance. There are no active hospital problems to display for this patient. (Not in a hospital admission) Current Outpatient Prescriptions Medication pramipexole cyanocobalamin light mineral oil-min oil (PF) predniSONE azaTHIOprine azelastine cyanocobalamin cycloSPORINE ferrous sulfate GLUCOSAMINE/MSM/CHONDROIT SULF (GLUCOSAMINE [id number] ORAL) levothyroxine lisinopril magnesium MELATONIN/PYRIDOXINE (MELATONIN, WITH B6, ORAL) peg 400-propylene glycol (PF) traMADol Current Facility-Administered Medications Medication Dose Route Frequency albumin 5% + calcium gluconate 4.6 mEq/L + potassium chloride 4 mEq/L1,000 mL intravenous Q1H anticoagulant citrate dextrose1,000 mL extracorporeal Once lidocaine PF0.3 mL injection Once PRN sodium chloride1,000 mL intravenous Once Allergies Allergen Reactions Unable To Assess H/O MG-any drug that blocks the neuromuscular junction and curare & its derivatives,morphine & other narcotics,tranquilizers,barbiturates/anesthetics-ether,halothane,m ethoxyflurane,gallamine,quinidine,pronestyle,quinine,tonic water,muscle relaxants,procainamide,propanolol,lidocaine,potassium depleting diuretics,streptomycin,aminoglycosides,kanamycin,colistin,gentamic in,geomycin,viomycin,tobramycin,neomycin,amikacin,sulfanomides,tet racycline,cipro & quinolones xveubbcukgen-izhyjvkniwmpqfmp-cprogkjys & ma Objective Physical Exam Vital Signs: (see apheresis procedure note). General Appearance: Awake, alert, oriented HEENT Unremarkable Chest Clear Cardiovascular Deferred Abdomen Deferred Extremities Unremarkable Skin Unremarkable Labs/Radiology/Diagnostics CBC: Results from last 7 days Lab Units 08/20/16 0914 WBC k/uL 6.01 HEMOGLOBIN g/dL 9.9* HEMATOCRIT % 31.3* PLATELET COUNT k/uL 191 COAG: CHEM: Results from last 7 days Lab Units 08/20/16 0914 CALCIUM mg/dL 9.3 BUN mg/dL 39* CREATININE mg/dL 1.1 IMMUN: ABO: Assessment/Plan Continue current regimen. Attending Signature: Kenny Silveira MD Date/Time:08/20/2016, 6:08 PM * Therapeutic plasma exchange (07/04/2016 1:42 PM) Narrative Janeen Kwan MD 07/04/2016 11:47 AM Clinical Pathology Apheresis Procedure Note Consulting Physician: Iam Yuen Date of Service: 07/04/2016 Access: Peripheral IV Access Site: Left Upper Extremity Procedure: Therapeutic Plasma Exchange (TPE): 5% Albumin in normal saline with 4 mEq potassium chloride and 4.6 mEq calcium gluconate Pre/Ursula-Procedural Medication: none Indication for Procedure: Myasthenia Gravis Planned Apheresis Schedule: 2 TPE's every 3 weeks. Subjective Domi Fiore is a 80 y.o. male with myasthenia gravis. He reports doing well with no major changes since he was here on Saturday for apheresis. There are no active hospital problems to display for this patient. (Not in a hospital admission) Current Outpatient Prescriptions Medication pramipexole cyanocobalamin light mineral oil-min oil (PF) predniSONE azaTHIOprine azelastine cyanocobalamin cycloSPORINE ferrous sulfate GLUCOSAMINE/MSM/CHONDROIT SULF (GLUCOSAMINE [id number] ORAL) levothyroxine lisinopril magnesium MELATONIN/PYRIDOXINE (MELATONIN, WITH B6, ORAL) peg 400-propylene glycol (PF) traMADol Current Facility-Administered Medications Medication Dose Route Frequency lidocaine PF0.3 mL injection PRN Allergies Allergen Reactions Unable To Assess H/O MG-any drug that blocks the neuromuscular junction and curare & its derivatives,morphine & other narcotics,tranquilizers,barbiturates/anesthetics-ether,halothane,m ethoxyflurane,gallamine,quinidine,pronestyle,quinine,tonic water,muscle relaxants,procainamide,propanolol,lidocaine,potassium depleting diuretics,streptomycin,aminoglycosides,kanamycin,colistin,gentamic in,geomycin,viomycin,tobramycin,neomycin,amikacin,sulfanomides,tet racycline,cipro & quinolones zhcbcvyipjwd-vjdpbdaxbuepwcqm-sduuklrpa & ma Objective Physical Exam Vital Signs: (see apheresis procedure note) General Appearance: Awake, alert, oriented HEENT Unremarkable Chest Clear Cardiovascular Deferred Abdomen Deferred Extremities Unremarkable Skin Unremarkable Labs/Radiology/Diagnostics CBC: COAG: CHEM: IMMUN: ABO: Assessment/Plan Domi Fiore is a 80 y.o. male undergoing TPE/2 of 2. Exchange performed using 4.2 Liters of 5% albumin as replacement fluid.Patient tolerated procedure without complication. Next procedure will be performed in 3 weeks. Janeen Sheu, MDDate/Time:07/04/2016, 11:47 AM AP/CP Resident, PGY-1 * Therapeutic apheresis for plasma (07/02/2016 12:53 PM) Narrative Janeen Kwan MD 07/02/2016 11:12 AM Clinical Pathology Apheresis Procedure Note Consulting Physician: Kenny Silveira Date of Service: 07/02/2016 Access: Peripheral IV Access Site: Left Upper Extremity Procedure: Therapeutic Plasma Exchange (TPE): 5% Albumin in normal saline with 4 mEq potassium chloride and 4.6 mEq calcium gluconate Pre/Ursula-Procedural Medication: none Indication for Procedure: Myasthenia Gravis Planned Apheresis Schedule: 2 TPE's every 3 weeks. Isma Fiore is a 80 y.o. male with myasthenia gravis. Since he was last here for apheresis, he injured his left knee with a nail gun. He was hospitalized briefly and has just finished 6 weeks of antibiotic infusions. Due to the injury, he had to missed his last apheresis procedures. He reports that his MG symptoms have been worse, specifically he is experiencing blurred vision, ptosis, and difficulty swallowing. No respiratory difficulties. There are no active hospital problems to display for this patient. (Not in a hospital admission) Current Outpatient Prescriptions Medication pramipexole cyanocobalamin light mineral oil-min oil (PF) predniSONE azaTHIOprine azelastine cyanocobalamin cycloSPORINE ferrous sulfate GLUCOSAMINE/MSM/CHONDROIT SULF (GLUCOSAMINE [id number] ORAL) levothyroxine lisinopril magnesium MELATONIN/PYRIDOXINE (MELATONIN, WITH B6, ORAL) peg 400-propylene glycol (PF) traMADol Current Facility-Administered Medications Medication Dose Route Frequency [COMPLETED] albumin 5% + calcium gluconate 4.6 mEq/L + potassium chloride 4 mEq/L1,000 mL intravenous Q1H lidocaine PF0.3 mL injection PRN Allergies Allergen Reactions Unable To Assess H/O MG-any drug that blocks the neuromuscular junction and curare & its derivatives,morphine & other narcotics,tranquilizers,barbiturates/anesthetics-ether,halothane,m ethoxyflurane,gallamine,quinidine,pronestyle,quinine,tonic water,muscle relaxants,procainamide,propanolol,lidocaine,potassium depleting diuretics,streptomycin,aminoglycosides,kanamycin,colistin,gentamic in,geomycin,viomycin,tobramycin,neomycin,amikacin,sulfanomides,tet racycline,cipro & quinolones gwazxqehwuci-boawgtkoviqqcbru-jgwdezvcy & ma Objective Physical Exam Vital Signs: (see apheresis procedure note) General Appearance: Awake, alert, oriented HEENT Unremarkable Chest Clear Cardiovascular Deferred Abdomen Deferred Extremities Unremarkable Skin Unremarkable Labs/Radiology/Diagnostics CBC: COAG: CHEM: IMMUN: ABO: Assessment/Plan Domi Fiore is a 80 y.o. male undergoing TPE/ 2. Exchange performed using 3.7 Liters of 5% albumin as replacement fluid.Patient tolerated procedure without complication. Next procedure will be performed Saturday. HARVEY Loveate/Time:07/02/2016, 11:12 AM AP/CP Resident, PGY-1 * Therapeutic plasma exchange (07/02/2016 12:53 PM) Narrative Janeen Kwan MD 07/02/2016 11:12 AM Clinical Pathology Apheresis Procedure Note Consulting Physician: Kenny Sil[facility] Date of Service: 07/02/2016 Access: Peripheral IV Access Site: Left Upper Extremity Procedure: Therapeutic Plasma Exchange (TPE): 5% Albumin in normal saline with 4 mEq potassium chloride and 4.6 mEq calcium gluconate Pre/Ursula-Procedural Medication: none Indication for Procedure: Myasthenia Gravis Planned Apheresis Schedule: 2 TPE's every 3 weeks. Subjective Domi Fiore is a 80 y.o. male with myasthenia gravis. Since he was last here for apheresis, he injured his left knee with a nail gun. He was hospitalized briefly and has just finished 6 weeks of antibiotic infusions. Due to the injury, he had to missed his last apheresis procedures. He reports that his MG symptoms have been worse, specifically he is experiencing blurred vision, ptosis, and difficulty swallowing. No respiratory difficulties. There are no active hospital problems to display for this patient. (Not in a hospital admission) Current Outpatient Prescriptions Medication pramipexole cyanocobalamin light mineral oil-min oil (PF) predniSONE azaTHIOprine azelastine cyanocobalamin cycloSPORINE ferrous sulfate GLUCOSAMINE/MSM/CHONDROIT SULF (GLUCOSAMINE [id number] ORAL) levothyroxine lisinopril magnesium MELATONIN/PYRIDOXINE (MELATONIN, WITH B6, ORAL) peg 400-propylene glycol (PF) traMADol Current Facility-Administered Medications Medication Dose Route Frequency [COMPLETED] albumin 5% + calcium gluconate 4.6 mEq/L + potassium chloride 4 mEq/L1,000 mL intravenous Q1H lidocaine PF0.3 mL injection PRN Allergies Allergen Reactions Unable To Assess H/O MG-any drug that blocks the neuromuscular junction and curare & its derivatives,morphine & other narcotics,tranquilizers,barbiturates/anesthetics-ether,halothane,m ethoxyflurane,gallamine,quinidine,pronestyle,quinine,tonic water,muscle relaxants,procainamide,propanolol,lidocaine,potassium depleting diuretics,streptomycin,aminoglycosides,kanamycin,colistin,gentamic in,geomycin,viomycin,tobramycin,neomycin,amikacin,sulfanomides,tet racycline,cipro & quinolones tefkvmejutpw-ycopsjixxnilvxxk-txtlhauuh & ma Objective Physical Exam Vital Signs: (see apheresis procedure note) General Appearance: Awake, alert, oriented HEENT Unremarkable Chest Clear Cardiovascular Deferred Abdomen Deferred Extremities Unremarkable Skin Unremarkable Labs/Radiology/Diagnostics CBC: COAG: CHEM: IMMUN: ABO: Assessment/Plan Domi Fiore is a 80 y.o. male undergoing TPE/1 of 2. Exchange performed using 3.7 Liters of 5% albumin as replacement fluid.Patient tolerated procedure without complication. Next procedure will be performed Saturday. HARVEY Loveate/Time:07/02/2016, 11:12 AM AP/CP Resident, PGY-1 * Therapeutic apheresis for plasma (05/04/2016 6:08 PM) Martín Silveira MD 05/04/20166:08 PM Clinical Pathology Apheresis Procedure Note Consulting Physician: Kenny Silveira Date of Service: 05/04/2016 Access: Peripheral IV Access Site: Right Upper Extremity Procedure: Therapeutic Plasma Exchange (TPE): 5% Albumin in normal saline with 4 mEq potassium chloride and 4.6 mEq calcium gluconate Pre/Ursula-Procedural Medication: none Indication for Procedure: Myasthenia Gravis Planned Apheresis Schedule: 2 TPE's every 3 weeks. Subjective Domi Fiore is a 80 y.o. male with myasthenia gravis. He reports doing well. No new issues.. There are no active hospital problems to display for this patient. (Not in a hospital admission) Current Outpatient Prescriptions Medication predniSONE azaTHIOprine azelastine cyanocobalamin cycloSPORINE ferrous sulfate GLUCOSAMINE/MSM/CHONDROIT SULF (GLUCOSAMINE [id number] ORAL) levothyroxine lisinopril magnesium MELATONIN/PYRIDOXINE (MELATONIN, WITH B6, ORAL) peg 400-propylene glycol (PF) pramipexole traMADol No current facility-administered medications for this encounter. Allergies Allergen Reactions Unable To Assess H/O MG-any drug that blocks the neuromuscular junction and curare & its derivatives,morphine & other narcotics,tranquilizers,barbiturates/anesthetics-ether,halothane,m ethoxyflurane,gallamine,quinidine,pronestyle,quinine,tonic water,muscle relaxants,procainamide,propanolol,lidocaine,potassium depleting diuretics,streptomycin,aminoglycosides,kanamycin,colistin,gentamic in,geomycin,viomycin,tobramycin,neomycin,amikacin,sulfanomides,tet racycline,cipro & quinolones ngcersbcshgs-obytzxitltqhfgzk-socrrlbvj & ma Objective Physical Exam Vital Signs: (see apheresis procedure note) General Appearance: Awake, alert, oriented HEENT Unremarkable Chest Clear Cardiovascular Deferred Abdomen Deferred Extremities Unremarkable Skin Unremarkable Labs/Radiology/Diagnostics CBC: COAG: CHEM: IMMUN: ABO: Assessment/Plan Continue current regimen. Attending Signature: Kenny Silveira MD Date/Time:05/04/2016, 6:07 PM * Therapeutic apheresis for plasma (05/03/2016 6:28 PM) Narrative Kenny Silveira MD 05/03/20166:28 PM Clinical Pathology Apheresis Procedure Note Consulting Physician: Kenny Silveira Date of Service: 05/03/2016 Access: Peripheral IV Access Site: Right Upper Extremity Procedure: Therapeutic Plasma Exchange (TPE): 5% Albumin in normal saline with 4 mEq potassium chloride and 4.6 mEq calcium gluconate Pre/Ursula-Procedural Medication: none Indication for Procedure: Myasthenia Gravis Planned Apheresis Schedule: 2 TPE's every 3 weeks. Subjective Domi Fiore is a 80 y.o. male with myasthenia gravis. He reports doing well. No new issues.. There are no active hospital problems to display for this patient. (Not in a hospital admission) Current Outpatient Prescriptions Medication predniSONE azaTHIOprine azelastine cyanocobalamin cycloSPORINE ferrous sulfate GLUCOSAMINE/MSM/CHONDROIT SULF (GLUCOSAMINE [id number] ORAL) levothyroxine lisinopril magnesium MELATONIN/PYRIDOXINE (MELATONIN, WITH B6, ORAL) peg 400-propylene glycol (PF) pramipexole traMADol No current facility-administered medications for this encounter. Allergies Allergen Reactions Unable To Assess H/O MG-any drug that blocks the neuromuscular junction and curare & its derivatives,morphine & other narcotics,tranquilizers,barbiturates/anesthetics-ether,halothane,m ethoxyflurane,gallamine,quinidine,pronestyle,quinine,tonic water,muscle relaxants,procainamide,propanolol,lidocaine,potassium depleting diuretics,streptomycin,aminoglycosides,kanamycin,colistin,gentamic in,geomycin,viomycin,tobramycin,neomycin,amikacin,sulfanomides,tet racycline,cipro & quinolones kjihdpbzsusb-zkevbbjixgvzrodv-hodlkdjqe & ma Objective Physical Exam Vital Signs: (see apheresis procedure note) General Appearance: Awake, alert, oriented HEENT Unremarkable Chest Clear Cardiovascular Deferred Abdomen Deferred Extremities Unremarkable Skin Unremarkable Labs/Radiology/Diagnostics CBC: COAG: CHEM: IMMUN: ABO: Assessment/Plan Continue current regimen. Attending Signature: Kenny Silveira MD Date/Time:05/03/2016, 6:26 PM * Therapeutic plasma exchange (04/11/2016 3:00 PM) Narrative Shala Raya MD 04/11/20163:00 PM Clinical Pathology Outpatient Apheresis Procedure Note Consulting Physician: Shala Raya Date of Service: 04/11/2016 Access: Peripheral Access Site: Left Upper Extremity Procedure: Therapeutic Plasma Exchange using 3 Liters of 5% albumin as replacement fluid Pre/Ursula-Procedural Medication: None Indication for Procedure: Myasthenia Gravis Procedure Number: 2 of 2 Planned Apheresis Schedule: 2x every 3 weeks for 4 months [09/20/15] Isma Fiore is a 80 y.o. male with Myasthenia Gravis presenting for scheduled therapeutic plasma exchange (TPE). He is doing well today, and denies any significant myasthenia gravis symptoms or significant interval change since his last visit. There are no active hospital problems to display for this patient. (Not in a hospital admission) Current Outpatient Prescriptions Medication predniSONE azaTHIOprine azelastine cyanocobalamin cycloSPORINE ferrous sulfate GLUCOSAMINE/MSM/CHONDROIT SULF (GLUCOSAMINE [id number] ORAL) levothyroxine lisinopril magnesium MELATONIN/PYRIDOXINE (MELATONIN, WITH B6, ORAL) peg 400-propylene glycol (PF) pramipexole traMADol Current Facility-Administered Medications Medication Dose Route Frequency albumin 5% + calcium gluconate 4.6 mEq/L + potassium chloride 4 mEq/L1,000 mL intravenous Q1H anticoagulant citrate dextrose1,000 mL extracorporeal Once lidocaine PF0.3 mL injection PRN sodium chloride1,000 mL intravenous Once Facility-Administered Medications Ordered in Other Encounters Medication Dose Route Frequency anticoagulant citrate dextrose1,000 mL extracorporeal Once lidocaine PF0.3 mL injection PRN sodium chloride1,000 mL intravenous Once anticoagulant citrate dextrose1,000 mL extracorporeal Once lidocaine PF0.3 mL injection PRN sodium chloride1,000 mL intravenous Once Allergies Allergen Reactions Unable To Assess H/O MG-any drug that blocks the neuromuscular junction and curare & its derivatives,morphine & other narcotics,tranquilizers,barbiturates/anesthetics-ether,halothane,m ethoxyflurane,gallamine,quinidine,pronestyle,quinine,tonic water,muscle relaxants,procainamide,propanolol,lidocaine,potassium depleting diuretics,streptomycin,aminoglycosides,kanamycin,colistin,gentamic in,geomycin,viomycin,tobramycin,neomycin,amikacin,sulfanomides,tet racycline,cipro & quinolones phaxkrxyuxcy-hawczxqdvzyzfdwl-uehoksagp & ma Objective Physical Exam Vital Signs: Vitals: 04/11/16 0859 BP: 157/74 Pulse: 81 Resp: 16 Temp: 97.2 F SpO2: 97% General Appearance: Awake, alert, oriented HEENT Unremarkable Chest Deferred Cardiovascular Deferred Abdomen Deferred Extremities Unremarkable Skin Unremarkable Labs/Radiology/Diagnostics Lab Results Component Value Date WBC 6.91 02/08/2016 HGB 11.3 (L) 02/08/2016 HCT 34.6 (L) 02/08/2016 PLT 175 02/08/2016 NA 144 02/08/2016 K 4.5 02/08/2016 CL 104 02/08/2016 CALCIUM 8.7 (L) 02/08/2016 CREATININE 0.9 02/08/2016 BUN 16 02/08/2016 CO2 28 02/08/2016 PT 13.2 12/22/2015 INR 1.0 12/22/2015 PTT 28.6 12/22/2015 ALT 46 02/08/2016 AST 35 02/08/2016 Assessment/Plan Domi Fiore is a 80 y.o. male undergoing TPE 1 of 2 for Myasthenia Gravis. Exchange performed using 3 Liters of 5% albumin as replacement fluid.Patient tolerated procedure without appreciable complication. The next TPE procedure is scheduled for May 21, 2016. Resident Signature: Marisela Smith MD Date/Time:04/11/2016, 9:57 AM PGY-1 Pathology residentPager: [phone] I agree with the assessment and plan above by Dr. Hernández. Mr. Fiore tolerated TPE without any complications.He notes his symptoms are stable and that he is doing well.No significant interval change noted. * Therapeutic plasma exchange (04/09/2016 8:15 PM) Narrative Marisela Smith MD 04/09/20169:27 AM Clinical Pathology Apheresis Procedure Note Consulting Physician: Kenny Silveira Date of Service: 04/09/2016 Access: Peripheral IV Access Site: Right Upper Extremity Procedure: Therapeutic Plasma Exchange (TPE): 5% Albumin in normal saline with 4 mEq potassium chloride and 4.6 mEq calcium gluconate Pre/Ursula-Procedural Medication: none Indication for Procedure: Myasthenia Gravis Planned Apheresis Schedule: TPE X 2 Q 4 weeks. Subjective Domi Fiore is a 80 y.o. male with myasthenia gravis treated with TPE. Mr Fiore denies any shortness of breath or difficulty breathing. He denies any other major MG symptoms today, and mentioned his daily activities have been ongoing as usual with minor weakness. He mentioned that the TPE treatment has kept him stable for the past months. Normally tolerates tpe without complications. No complaints. There are no active hospital problems to display for this patient. (Not in a hospital admission) Current Outpatient Prescriptions Medication predniSONE azaTHIOprine azelastine cyanocobalamin cycloSPORINE ferrous sulfate GLUCOSAMINE/MSM/CHONDROIT SULF (GLUCOSAMINE [id number] ORAL) levothyroxine lisinopril magnesium MELATONIN/PYRIDOXINE (MELATONIN, WITH B6, ORAL) peg 400-propylene glycol (PF) pramipexole traMADol Current Facility-Administered Medications Medication Dose Route Frequency albumin 5% + calcium gluconate 4.6 mEq/L + potassium chloride 4 mEq/L1,000 mL intravenous Q1H anticoagulant citrate dextrose1,000 mL extracorporeal Once sodium chloride1,000 mL intravenous Once Facility-Administered Medications Ordered in Other Encounters Medication Dose Route Frequency anticoagulant citrate dextrose1,000 mL extracorporeal Once lidocaine PF0.3 mL injection PRN sodium chloride1,000 mL intravenous Once anticoagulant citrate dextrose1,000 mL extracorporeal Once lidocaine PF0.3 mL injection PRN sodium chloride1,000 mL intravenous Once Allergies Allergen Reactions Unable To Assess H/O MG-any drug that blocks the neuromuscular junction and curare & its derivatives,morphine & other narcotics,tranquilizers,barbiturates/anesthetics-ether,halothane,m ethoxyflurane,gallamine,quinidine,pronestyle,quinine,tonic water,muscle relaxants,procainamide,propanolol,lidocaine,potassium depleting diuretics,streptomycin,aminoglycosides,kanamycin,colistin,gentamic in,geomycin,viomycin,tobramycin,neomycin,amikacin,sulfanomides,tet racycline,cipro & quinolones zxrojewjbplm-umqgoexlcnhngbdh-vkpwvgxzj & ma Objective Physical Exam Vital Signs: see apheresis procedure note). General Appearance: Awake, alert, oriented HEENT Unremarkable Chest Non-labored breathing Cardiovascular Deferred Abdomen Deferred Extremities Unremarkable Skin Ecchymoses Labs/Radiology/Diagnostics Results for DOMI FIORE ( ) as of 02/09/2016 08:49 Ref. Range 02/08/2016 13:30 Sodium Latest Ref Range: 135 - 148 mEq/L 144 Potassium Latest Ref Range: 3.5 - 5.0 mEq/L 4.5 Chloride Latest Ref Range: 98 - 112 mEq/L 104 CO2 Latest Ref Range: 24 - 31 mEq/L 28 Anion gap Latest Ref Range: 7 - 15 mEq/L 12 BUN Latest Ref Range: 8 - 23 mg/dL 16 Creatinine Latest Ref Range: 0.7 - 1.2 mg/dL 0.9 Glucose Latest Ref Range: 65 - 99 mg/dL 107 (H) Calcium Latest Ref Range: 8.8 - 10.2 mg/dL 8.7 (L) GFR Non Af Amer Latest Units: mL/min/1.73 m2 81 GFR Af Amer Latest Units: mL/min/1.73 m2 >90 Protein Latest Ref Range: 6.3 - 8.3 g/dL 5.9 (L) Albumin Latest Ref Range: 3.5 - 5.0 g/dL 4.0 A/G ratio Latest Ref Range: 0.7 - 3.82.1 Alkaline phosphatase Latest Ref Range: 40 - 129 U/L 162 (H) ALT Latest Ref Range: 5 - 50 U/L 46 AST Latest Ref Range: 10 - 50 U/L 35 Total bilirubin Latest Ref Range: 0.0 - 1.2 mg/dL 0.7 WBC Latest Ref Range: 4.50 - 11.00 k/uL 6.91 RBC Latest Ref Range: 4.40 - 6.00 m/uL 3.25 (L) HGB Latest Ref Range: 14.0 - 18.0 g/dL 11.3 (L) HCT Latest Ref Range: 41.0 - 51.0 % 34.6 (L) MCV Latest Ref Range: 82.0 - 100.0 fL 106.5 (H) MCH Latest Ref Range: 27.0 - 34.0 pg 34.8 (H) MCHC Latest Ref Range: 31.0 - 37.0 g/dL 32.7 RDW - SD Latest Ref Range: 37.0 - 55.0 fL 56.4 (H) MPV Latest Ref Range: 8.8 - 13.2 fL 12.8 Platelet count Latest Ref Range: 150 - 400 k/uL 175 Neutrophils Latest Ref Range: 39.0 - 69.0 % 71.3 (H) Lymphocytes Latest Ref Range: 25.0 - 45.0 % 17.1 (L) Monocytes Latest Ref Range: 0.0 - 10.0 % 8.2 Eosinophils Latest Ref Range: 0.0 - 5.0 % 1.2 Basophils Latest Ref Range: 0.0 - 1.0 % 0.6 Immature granulocytes Latest Ref Range: 0.0 - 1.0 % 1.6 (H) Nucleated RBC Latest Units: /100 WBC 0.00 Assessment/Plan Domi Fiore is a 80 y.o. male with myasthenia gravis treated with TPE 2 of 2. He tolerated the procedure well without complications. He received 4L of 5% albumin as replacement fluid. Will RTC in 4 wks. Signature: Marisela Smith MD, PhD Date/Time:04/09/2016, 9:21 AM after 04/03/2016 Insurance Payer Benefit Subscriber ID Type Phone Address Plan / Group MEDICARE MEDICARE xxxxxxxxxx Medicare [place] PART A AND B [facility] xxxxxxxxxxxx HMO [place] IN AREA/HMO BLUE ESSENTIALS
== END | disposition home or self-care (01) ==
LOC: OR 05:23
PROVIDERS: ATTEND Internal Medicine Gastroenterology
DX: K22.2 Esophageal obstruction (principal); K29.70 Gastritis, unspecified, without bleeding; K44.9 Diaphragmatic hernia without obstruction or gangrene; E66.3 Overweight; G47.33 Obstructive sleep apnea (adult) (pediatric); E03.9 Hypothyroidism, unspecified; G70.00 Myasthenia gravis without (acute) exacerbation; B15.9 Hepatitis A without hepatic coma; I49.3 Ventricular premature depolarization; Z01.810 Encounter for preprocedural cardiovascular examination; Z01.812 Encounter for preprocedural laboratory examination; Z79.82 Long term (current) use of aspirin; Z68.28 Body mass index [BMI] 28.0-28.9, adult; Z87.891 Personal history of nicotine dependence
CPT/HCPCS: 36415; 43239; 43249; 85025; 93005; J2001; 43450

== ENCOUNTER → 2018-02-06 | Day surgery (SDC) | payer MEDICARE, BC ==
[2018-02-04 12:30] LABS: BASOPHILS % 0.5 % (0.0-1.0); EOSINOPHILS # (AUTO) 0.1 (0.0-0.4); EOSINOPHILS % 3.3 % (0.0-6.0); HEMATOCRIT 35.4 % (38.2-49.6); HEMOGLOBIN 11.7 g/dL (14.0-18.0); LYMPHOCYTES # (AUTO) 0.7 (1.0-3.2); LYMPHOCYTES % 18.4 % (18.0-39.1); MEAN CORPUSCULAR HEMOGLOBIN 34.2 pg (28-32); MEAN CORPUSCULAR HGB CONC 33.1 g/dL (31-35); MEAN CORPUSCULAR VOLUME 103.5 fL (81-99); MONOCYTES # (AUTO) 0.4 (0.2-0.8); MONOCYTES % 9.9 % (4.4-11.3); NEUTROPHILS # (AUTO) 2.6 (2.1-6.9); NEUTROPHILS % 67.4 % (38.7-80.0); PLATELET COUNT 123 x10e3/uL (140-360); RED BLOOD COUNT 3.42 x10e6/uL (4.3-5.7); RED CELL DISTRIBUTION WIDTH 13.2 % (11.7-14.4)
[~2018-02-06] MED LIST changes: +AMOXICILLIN500 MG; -LIDOCAINE HCL 2% LOCAL INJ 5 ML SDV VIAL INJ ONE; +OMEPRAZOLE40 MG; +PROPOFOL IV EMULSION 10 MG/ML 20 ML VIAL ONE; -PROPOFOL IV EMULSION 10 MG/ML 50 ML VIAL ONE; +[UNRECOGNIZED DRUG - OTHER]
[2018-02-06 08:58] VITALS: BP 127/74
--- OUTSIDE RECORDS SUMMARY | 2018-02-07 12:05 | XMS REPORT | Clinical Summary ---
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 Name Role Phone Mike Castle MD PCP Allergies Comments Active Allergy Reactions Severity Noted Date H/O MG-any drug that blocks the neuromuscular junction and curare & its derivatives,morphine & other narcotics,tranquilizers,barbiturates/anesthetics-ether,halothane,methoxyflurane,gallamine,haylee nidine,pronestyle,quinine,tonic water,muscle relaxants,procainamide,propanolol,lidocaine,potassium depleting diuretics,streptomycin,aminoglycosides,kanamycin,colistin,gentamicin,geomycin,viomycin,tobr amycin,neomycin,amikacin,sulfanomides,tetracycline,cipro & quinolones xqacsssihhti-ltentgdgwbxmckje-vzwknymxa & ma Unable To Assess 12/22/2015 Medications End Date Status Medication Sig Dispensed Refills Start Date Active cyanocobalamin 1000 MCG Take 1,000 0 tablet mcg by mouth daily. Active azaTHIOprine (IMURAN) 50 Take 50 mg by 0 mg tablet mouth daily. Active lisinopril Take 10 mg by 0 (PRINIVIL,ZESTRIL) 10 MG mouth daily. tablet Active levothyroxine (SYNTHROID, Take 150 mcg 0 LEVOTHROID) 150 MCG by mouth tablet every morning. Active ferrous sulfate 325 (65 Take 325 mg 0 FE) MG tablet by mouth daily with breakfast. Active cycloSPORINE (RESTASIS) 1 drop 2 0 0.05 % ophthalmic (two) times a emulsion day. Active azelastine (ASTELIN) 137 1 spray into 0 mcg (0.1 %) nasal spray each nostril 2 (two) times a day. Use in each nostril as directed Active GLUCOSAMINE/MSM/CHONDROIT Take by 0 SULF (GLUCOSAMINE mouth. [id number] ORAL) Active MELATONIN/PYRIDOXINE Take by 0 (MELATONIN, WITH B6, mouth. ORAL) Active peg 400-propylene glycol, Apply to eye. 0 PF, (SYSTANE, PF,) 0.4-0.3 % dropperette Active magnesium 30 mg tablet Take 30 mg by 0 mouth 2 (two) times a day. Active light mineral oil-min Apply 1 drop 0 oil, PF, (RETAINE MGD, to eye PF,) 0.5-0.5 % continuously dropperette as needed (As often as pt needs to use). Active cyanocobalamin 1,000 INJECT 1 ML 25 mL 2 mcg/mL injection IN THE MUSCLE 7 OR VIA SUBCUTANEOUS ROUTE ONCE A WEEK Active pramipexole (MIRAPEX) 0.5 TITRATE 60 tablet 2 MG tablet DIRECTED AND 8 TAKE UP TO TWO (2) TABLETS BY MOUTH AT 6:00 PM. 07/04/2017 Discontinued traMADol (ULTRAM) 50 mg Take 50 mg by 0 tablet mouth every 6 (six) hours as needed for moderate pain. 02/22/2017 predniSONE (DELTASONE) 5 TAKE ONE (1) 120 tablet 4 mg tablet TABLET(S) BY 7 MOUTH FOUR TIMES A DAY. 07/08/2017 Discontinued pramipexole (MIRAPEX) 0.5 TITRATE 60 tablet 4 MG tablet DIRECTED TO 7 TWO (2) TABLETS BY MOUTH AT 6:00 PM. 07/19/2017 traMADol (ULTRAM) 50 mg Take 1 tablet 60 tablet 0 tablet (50 mg total) 8 by mouth every 6 (six) hours as needed for moderate pain for up to 15 days. 11/08/2017 Discontinued pramipexole (MIRAPEX) 0.5 TITRATE 60 tablet 3 MG tablet DIRECTED AND 8 TAKE UP TO TWO (2) TABLETS BY MOUTH AT 6:00 PM. 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 12/28/2015 Encounters Care Team Description Date Type Specialty Carlin Land MD 12/24/2017 Transcribe Blood Bank Orders Sesar Johnson MD 11/08/2017 Refill Neurology Sesar Johnson MD 07/08/2017 Refill Neurology Arminda Guthrie MA 07/04/2017 Orders Only Ortho Sports Medicine Cecile Clancy MD 04/18/2017 Refill Neurology Deisi Logan MD MG (myasthenia gravis); Myasthenia gravis 04/10/2017 Hospital Blood Bank Encounter Deisi Logan MD MG (myasthenia gravis); Myasthenia gravis 04/08/2017 Hospital Blood Bank Encounter Deisi Logan MD No Show 04/01/2017 Hospital Blood Bank Encounter Deisi Logan MD MG (myasthenia gravis); Myasthenia gravis 03/11/2017 Hospital Blood Bank Encounter Deisi Logan MD Pleitez, Milvia Y., MD Myasthenia gravis; MG (myasthenia gravis) 03/07/2017 Hospital Blood Bank Encounter Deisi Logan MD MG (myasthenia gravis); Myasthenia gravis 02/07/2017 Hospital Blood Bank Encounter after 02/06/2017 Family History Medical History Relation Name Comments No Known Problems Mother Relation Name Status Comments Mother Social History Date Tobacco Use Types Packs/Day Years Used Quit: 1977 Former Smoker 1 25 Alcohol Use Drinks/Week oz/Week Comments No 2/DAY SOCIALLY Sex Assigned at Date Recorded Not on file Industry Job Start Date Occupation Not on file Not on file Not on file Travel End Travel History Travel Start No recent travel history available. Last Filed Vital Signs Time Taken Vital Sign Reading 04/10/2017 7:55 AM SOLAR SYSTEM INSTALLER Blood Pressure 125/58 04/10/2017 7:55 AM SOLAR SYSTEM INSTALLER Pulse 68 04/10/2017 7:55 AM SOLAR SYSTEM INSTALLER Temperature 36.2 C (97.2 F) 04/10/2017 7:55 AM SOLAR SYSTEM INSTALLER Respiratory Rate 18 04/10/2017 7:55 AM SOLAR SYSTEM INSTALLER Oxygen Saturation 99% - Inhaled Oxygen - Concentration 04/10/2017 7:55 AM SOLAR SYSTEM INSTALLER Weight 90.7 kg (200 lb) 04/10/2017 7:55 AM SOLAR SYSTEM INSTALLER Height 177.8 cm (5' 10") 04/10/2017 7:55 AM SOLAR SYSTEM INSTALLER Body Mass Index 28.7 Plan of Treatment Health Maintenance Due Date Last Done Comments SHINGLES VACCINES (1 of 1986 2) PNEUMOCOCCAL 2001 POLYSACCHARIDE VACCINE AGE 65 AND OVER PNEUMOCOCCAL-13 2001 INFLUENZA VACCINE 09/18/2017 Implants Device Identifier Shelf Expiration Date Model / Serial / Lot Implanted Type Area Manufactur er [id number] / / Screw Gleno Bsplt Lkng Mltdrctnl Distal Left: Shoulder TORNIER 4.5x20mm Ns Aequalis - [id number] Joint [employer] Implanted: Qty: 2 on 12/28/2015 by Orthopedic Wally Monroe MD Implants 07/27/2020 [id number] / / [id number] Aequalis Reversed Glenoid Sphere - IPM Left: Shoulder TORNIER For 25 Mm Baseplate2 Mm Eccentric IMPLANT INC 36 Mm - [id number] DEVICES Implanted: Qty: 1 on 12/28/2015 by Wally Monroe MD 10/05/2020 [id number] / / [id number] Ascend Flex Reversed Traycentered IPM Left: Shoulder TORNIER Reversed Tray (+)0 - [id number] IMPLANT INC Implanted: Qty: 1 on 12/28/2015 by DEVICES Wally Monroe MD 08/03/2020 [id number] / / [id number] Ascend Flex Standard Ptc Humeral IPM Left: Shoulder TORNIER Stems (Anatomic)5b Ascend Flex IMPLANT INC Standard Ptc Humeral Stem - DEVICES [id number] Implanted: Qty: 1 on 12/28/2015 by Wally Monroe MD 11/23/2020 [id number] / / [id number] Ascend Flex Standard Reversed IPM Left: Shoulder TORNIER [id number] Diameter Standard IMPLANT INC Reversed Insert (+)6 - [id number] DEVICES Implanted: Qty: 1 on 12/28/2015 by Wally Monroe MD 12/08/2019 [id number] / / [id number] Baseplate Gleno Aequalis 25mm - Orthopedic Left: Shoulder TORNIER [id number] [employer] Implanted: Qty: 1 on 12/28/2015 by Wally Valenzuela MD [id number] / / Screw Bone Comp 4.5cm 20mm Ns Shoulder Left: Shoulder TORNIER Aequalis - [id number] Joint INC Implanted: Qty: 1 on 12/28/2015 by Wally Valenzuela MD 02/17/2017 [id number] / / [id number] Cement Bone Full-Dose Premxd W/ Surgical Left: Shoulder OLIVE Tobr Simplex P 1ea - [id number] Bone ORTHOPEDIC Implanted: Qty: 1 on 12/28/2015 by Wally Brown MD HIPS-KNEES Procedures Comments Procedure Name Priority Date/Time Associated Diagnosis THERAPEUTIC PLASMA Routine 04/10/2017 MG (myasthenia gravis) EXCHANGE 5:53 PM SOLAR SYSTEM INSTALLER PLASMA EXCHANGE Routine 04/10/2017 8:18 AM SOLAR SYSTEM INSTALLER THERAPEUTIC PLASMA Routine 04/08/2017 Myasthenia gravis EXCHANGE 4:25 PM SOLAR SYSTEM INSTALLER PLASMA EXCHANGE Routine 04/08/2017 8:51 AM SOLAR SYSTEM INSTALLER ZZESTIMATED GFR Routine 03/11/2017 11:31 AM SOLAR SYSTEM INSTALLER BASIC METABOLIC PANEL Routine 03/11/2017 11:31 AM SOLAR SYSTEM INSTALLER IONIZED CALCIUM Routine 03/11/2017 11:31 AM SOLAR SYSTEM INSTALLER HC COMPLETE BLD COUNT Routine 03/11/2017 W/AUTO DIFF 11:29 AM SOLAR SYSTEM INSTALLER PLASMA EXCHANGE Routine 03/11/2017 11:19 AM SOLAR SYSTEM INSTALLER THERAPEUTIC PLASMA Routine 03/07/2017 Myasthenia gravis EXCHANGE 2:59 PM SOLAR SYSTEM INSTALLER PLASMA EXCHANGE Routine 03/07/2017 11:12 AM SOLAR SYSTEM INSTALLER THERAPEUTIC PLASMA Routine 02/07/2017 Myasthenia gravis EXCHANGE 5:03 PM SOLAR SYSTEM INSTALLER PLASMA EXCHANGE Routine 02/07/2017 11:45 AM SOLAR SYSTEM INSTALLER after 02/06/2017 Results * Therapeutic apheresis for plasma (04/10/2017 5:53 PM SOLAR SYSTEM INSTALLER) Narrative Performed At Kenny Silveira MD 04/10/20175:54 PM Clinical Pathology Apheresis Procedure Note Consulting Physician: Kenny Silveira Date of Service: 04/10/2017 Access: Peripheral IV Access Site: Left Upper Extremity Procedure: Therapeutic Plasma Exchange (TPE): 5% Albumin in normal saline with 4 mEq potassium chloride and 4.6 mEq calcium gluconate Pre/Ursula-Procedural Medication: No medications Indication for Procedure: Myasthenia Gravis Planned Apheresis Schedule: 2 TPEs every 3 weeks Subjective Jacinto Aggarwal is a 81 y.o. male receiving TPE for maintenance of Myasthenia Gravis.He reports no significant interval changes since his last procedure on 03/11/17. Current Outpatient Prescriptions Medication pramipexole cyanocobalamin light mineral oil-min oil (PF) azaTHIOprine azelastine cyanocobalamin cycloSPORINE ferrous sulfate GLUCOSAMINE/MSM/CHONDROIT SULF (GLUCOSAMINE [id number] ORAL) levothyroxine lisinopril magnesium MELATONIN/PYRIDOXINE (MELATONIN, WITH B6, ORAL) peg 400-propylene glycol (PF) traMADol Current Facility-Administered Medications Medication Dose Route Frequency lidocaine PF0.3 mL injection Once PRN Allergies Allergen Reactions Unable To Assess H/O MG-any drug that blocks the neuromuscular junction and curare & its derivatives,morphine & other narcotics,tranquilizers,barbiturates/anesthetics-ether,halothane,m ethoxyflurane,gallamine,quinidine,pronestyle,quinine,tonic water,muscle relaxants,procainamide,propanolol,lidocaine,potassium depleting diuretics,streptomycin,aminoglycosides,kanamycin,colistin,gentamic in,geomycin,viomycin,tobramycin,neomycin,amikacin,sulfanomides,tet racycline,cipro & quinolones mtcoketlaevw-lhzoziphadimgjem-euypmjzkn & ma Objective Physical Exam Vital Signs: General Appearance: Awake, alert, oriented HEENT Unremarkable Chest Deferred Cardiovascular Deferred Abdomen Deferred Extremities Deferred Skin Unremarkable Assessment/Plan Mr. Aggarwal is an 81 year old male receiving maintenance TPE #2/2 for Myasthenia Gravis. He tolerated the procedure without complications, with 3 L of 5% albumin. Kenny Silveira MD Date/Time:04/10/2017, 5:53 PM * Plasma exchange (04/10/2017 8:18 AM SOLAR SYSTEM INSTALLER) Only the most recent of 5 results within the time period is included. Plasma exchange Done [facility] DEPARTMENT OF PATHOLOGY AND GENOMIC MEDICINE Performing Organization Address City/State/Zipcode Phone Number [facility] DEPARTMENT OF [address] [place] [address] PATHOLOGY AND GENOMIC MEDICINE * Therapeutic plasma exchange (04/08/2017 4:25 PM SOLAR SYSTEM INSTALLER) Narrative Performed At Vipul Cobb MD 04/08/2017 10:28 AM Clinical Pathology Apheresis Procedure Note Consulting Physician: Kenny Silveira Date of Service: 04/08/2017 Access: Peripheral IV Access Site: Left Upper Extremity Procedure: Therapeutic Plasma Exchange (TPE): 5% Albumin in normal saline with 4 mEq potassium chloride and 4.6 mEq calcium gluconate Pre/Ursula-Procedural Medication: No medications Indication for Procedure: Myasthenia Gravis Planned Apheresis Schedule: 2 TPEs every 3 weeks Subjective Jacinto Aggarwal is a 81 y.o. male receiving TPE for maintenance of Myasthenia Gravis.He reports no significant interval changes since his last procedure on 03/11/17. Current Outpatient Prescriptions Medication pramipexole cyanocobalamin light mineral oil-min oil (PF) azaTHIOprine azelastine cyanocobalamin cycloSPORINE ferrous sulfate GLUCOSAMINE/MSM/CHONDROIT SULF (GLUCOSAMINE [id number] ORAL) levothyroxine lisinopril magnesium MELATONIN/PYRIDOXINE (MELATONIN, WITH [...] relaxants,procainamide,propanolol,lidocaine,potassium depleting diuretics,streptomycin,aminoglycosides,kanamycin,colistin,gentamic in,geomycin,viomycin,tobramycin,neomycin,amikacin,sulfanomides,tet racycline,cipro & quinolones qbermsgnuokh-ivxihxeztkqtdlcv-ufmeywmzr & ma Objective Physical Exam Vital Signs: General Appearance: Awake, alert, oriented HEENT Unremarkable Chest Deferred Cardiovascular Deferred Abdomen Deferred Extremities Deferred Skin Unremarkable Assessment/Plan Mr. Aggarwal is an 81 year old male receiving maintenance TPE #2/2 for Myasthenia Gravis. He tolerated the procedure without complications, with 3 L of 5% albumin. Vipul Cobb MD Date/Time:04/08/2017, 10:25 AM * Estimated GFR (03/11/2017 11:31 AM SOLAR SYSTEM INSTALLER) GFR Non Af Amer 72 mL/min/1.73 m2 [facility] DEPARTMENT OF PATHOLOGY AND GENOMIC MEDICINE GFR Af Amer 87 mL/min/1.73 m2 [facility] DEPARTMENT OF Comment: PATHOLOGY AND Chronic kidney disease: <60 GENOMIC MEDICINE mL/min/1.73m2 Kidney failure: <15 mL/min/1.73m2 The estimated GFR is calculated from the IDMS-traceable Modification of Diet in Renal Disease Equation. The accuracy of the calculation is poor when the creatinine is normal. Calculated values >90 mL/min/1.73m2 are not reported. This equation has not been validated in children (<18 years), women, the elderly (>70 years), or ethnic groups other than Caucasians and Americans. Specimen Plasma specimen Performing Organization Address City/State/[place] [address] PATHOLOGY AND [employer] [facility] * Ionized calcium (03/11/2017 11:31 AM SOLAR SYSTEM INSTALLER) pH 7.36 [facility] DEPARTMENT OF PATHOLOGY AND GENOMIC MEDICINE Ionized calcium 1.17 1.11 - 1.32 mmol/L [facility] DEPARTMENT OF PATHOLOGY AND [employer] MEDICINE Specimen Plasma specimen Performing Organization Address City/State/[place] [address] PATHOLOGY AND [employer] MEDICINE * Basic metabolic panel (03/11/2017 11:31 AM SOLAR SYSTEM INSTALLER) Sodium 142 135 - 148 mEq/L [facility] DEPARTMENT OF PATHOLOGY AND GENOMIC MEDICINE Potassium 4.2 3.5 - 5.0 mEq/L [facility] DEPARTMENT OF PATHOLOGY AND GENOMIC MEDICINE Chloride 103 98 - 112 mEq/L [facility] DEPARTMENT OF PATHOLOGY AND GENOMIC MEDICINE CO2 27 24 - 31 mEq/L [facility] DEPARTMENT OF PATHOLOGY AND GENOMIC MEDICINE Anion gap 12 7 - 15 mEq/L [facility] DEPARTMENT OF Comment: PATHOLOGY AND Starting from May GENOMIC MEDICINE , anion gap calculation no longer incorporates potassium. Please note the change. BUN 21 8 - 23 mg/dL [facility] DEPARTMENT OF PATHOLOGY AND GENOMIC MEDICINE Creatinine 1.0 0.7 - 1.2 mg/dL [facility] DEPARTMENT OF PATHOLOGY AND GENOMIC MEDICINE Glucose 97 65 - 99 mg/dL [facility] DEPARTMENT OF PATHOLOGY AND GENOMIC MEDICINE Calcium 9.0 8.8 - 10.2 mg/dL [facility] DEPARTMENT OF PATHOLOGY AND GENOMIC MEDICINE Specimen Plasma specimen Performing Organization Address City/State/Zipcode Phone Number [facility] DEPARTMENT OF [address] [place] [address] PATHOLOGY AND GENOMIC MEDICINE * CBC with platelet and differential (03/11/2017 11:29 AM SOLAR SYSTEM INSTALLER) WBC 5.69 4.50 - 11.00 k/uL [facility] DEPARTMENT OF PATHOLOGY AND GENOMIC MEDICINE RBC 3.28 (L) 4.40 - 6.00 m/uL [facility] DEPARTMENT OF PATHOLOGY AND GENOMIC MEDICINE HGB 11.1 (L) 14.0 - 18.0 g/dL [facility] DEPARTMENT OF PATHOLOGY AND GENOMIC MEDICINE HCT 34.4 (L) 41.0 - 51.0 % [facility] DEPARTMENT OF PATHOLOGY AND GENOMIC MEDICINE MCV 104.9 (H) 82.0 - 100.0 fL [facility] DEPARTMENT OF PATHOLOGY AND GENOMIC MEDICINE MCH 33.8 27.0 - 34.0 pg [facility] DEPARTMENT OF PATHOLOGY AND GENOMIC MEDICINE MCHC 32.3 31.0 - 37.0 g/dL [facility] DEPARTMENT OF PATHOLOGY AND GENOMIC MEDICINE RDW - SD 49.6 37.0 - 55.0 fL [facility] DEPARTMENT OF PATHOLOGY AND GENOMIC MEDICINE MPV 12.5 8.8 - 13.2 fL [facility] DEPARTMENT OF PATHOLOGY AND GENOMIC MEDICINE Platelet count 158 150 - 400 k/uL [facility] DEPARTMENT OF PATHOLOGY AND GENOMIC MEDICINE Nucleated RBC 0.00 /100 WBC [facility] DEPARTMENT OF PATHOLOGY AND GENOMIC MEDICINE Neutrophils 73.4 (H) 39.0 - 69.0 % [facility] DEPARTMENT OF PATHOLOGY AND GENOMIC MEDICINE Lymphocytes 15.8 (L) 25.0 - 45.0 % [facility] DEPARTMENT OF PATHOLOGY AND GENOMIC MEDICINE Monocytes 6.9 0.0 - 10.0 % [facility] DEPARTMENT OF PATHOLOGY AND GENOMIC MEDICINE Eosinophils 2.8 0.0 - 5.0 % [facility] DEPARTMENT OF PATHOLOGY AND GENOMIC MEDICINE Basophils 0.2 0.0 - 1.0 % [facility] DEPARTMENT OF PATHOLOGY AND GENOMIC MEDICINE Immature granulocytes 0.9Comment: "Immature 0.0 - 1.0 % [facility] DEPARTMENT OF granulocytes" (promyelocytes, PATHOLOGY AND myelocytes, metamyelocytes) GENOMIC MEDICINE Performing Organization Address City/State/Zipcode Phone Number [facility] DEPARTMENT OF [address] [place] [address] PATHOLOGY AND GENOMIC MEDICINE * Therapeutic plasma exchange (03/07/2017 2:59 PM SOLAR SYSTEM INSTALLER) Narrative Performed At Shala Raya MD 03/07/20172:59 PM Clinical Pathology Apheresis Procedure Note Consulting Physician: Shala Raya Date of Service: 03/07/2017 Access: Peripheral IV Access Site: Left Upper Extremity Procedure: Therapeutic Plasma Exchange (TPE): 5% Albumin in normal saline with 4 mEq potassium chloride and 4.6 mEq calcium gluconate Pre/Ursula-Procedural Medication: No medications Indication for Procedure: Myasthenia Gravis Planned Apheresis Schedule: 2 TPEs every 3 weeks Isma Aggarwal is a 81 y.o. male receiving TPE for maintenance of Myasthenia Gravis. The patient complains of bilateral lower extremity lymphedema. He feels this is controlled with compression stockings. He denies any weakness, shortness of breath, or difficulty swallowing. No significant interval change. Current Outpatient Prescriptions Medication pramipexole cyanocobalamin light mineral oil-min oil (PF) azaTHIOprine azelastine cyanocobalamin cycloSPORINE ferrous sulfate GLUCOSAMINE/MSM/CHONDROIT SULF (GLUCOSAMINE [id number] ORAL) levothyroxine lisinopril magnesium MELATONIN/PYRIDOXINE (MELATONIN, WITH B6, ORAL) peg 400-propylene glycol (PF) traMADol Current Facility-Administered Medications Medication Dose Route Frequency lidocaine PF0.3 mL injection Once PRN Allergies Allergen Reactions Unable To Assess H/O MG-any drug that blocks the neuromuscular junction and curare & its derivatives,morphine & other narcotics,tranquilizers,barbiturates/anesthetics-ether,halothane,m ethoxyflurane,gallamine,quinidine,pronestyle,quinine,tonic water,muscle relaxants,procainamide,propanolol,lidocaine,potassium depleting diuretics,streptomycin,aminoglycosides,kanamycin,colistin,gentamic in,geomycin,viomycin,tobramycin,neomycin,amikacin,sulfanomides,tet racycline,cipro & quinolones ymaaejlzhbzd-wfcicyfvypnsppsg-mrjkzvgdm & ma Objective Physical Exam Vital Signs: General Appearance: Awake, alert, oriented HEENT Unremarkable Chest Deferred Cardiovascular Deferred Abdomen Deferred Extremities Deferred, patient is using bilateral lower extremity compression stockings Skin Ecchymosis in bilateral upper extremities Assessment/Plan Mr. Aggarwal is an 81 year old male receiving maintenance TPE #1/2 for Myasthenia Gravis. He tolerated the procedure without complications, with 3 L of 5% albumin. He will RTC for his next TPE procedure on Saturday. Shala Raya MD Date/Time:03/07/2017, 2:56 PM * Therapeutic plasma exchange (02/07/2017 5:03 PM SOLAR SYSTEM INSTALLER) Narrative Performed At Shala Raya MD 02/07/20175:03 PM Clinical Pathology [...] Schedule: 2 TPEs every 3 weeks Subjective Jacinto Aggarwal is a 81 y.o. male receiving TPE for maintenance of Myasthenia Gravis. The patient complains of bilateral lower extremity lymphedema. He feels this is controlled with compression stockings. He denies any weakness, shortness of breath, or difficulty swallowing. Current Outpatient Prescriptions Medication pramipexole cyanocobalamin light mineral oil-min oil (PF) predniSONE azaTHIOprine azelastine cyanocobalamin cycloSPORINE ferrous sulfate GLUCOSAMINE/MSM/CHONDROIT SULF (GLUCOSAMINE [id number] ORAL) levothyroxine lisinopril magnesium MELATONIN/PYRIDOXINE (MELATONIN, WITH [...] relaxants,procainamide,propanolol,lidocaine,potassium depleting diuretics,streptomycin,aminoglycosides,kanamycin,colistin,gentamic in,geomycin,viomycin,tobramycin,neomycin,amikacin,sulfanomides,tet racycline,cipro & quinolones tovrjmqqljzo-dbksqwinyuqcnoqn-awapkjoaa & ma Objective Physical Exam Vital Signs: General Appearance: Awake, alert, oriented HEENT Unremarkable Chest Deferred Cardiovascular Deferred Abdomen Deferred Extremities Deferred, patient is using bilateral lower extremity compression stockings Skin Ecchymosis in bilateral upper extremities Assessment/Plan Mr. Aggarwal is an 81 year old male receiving maintenance TPE #2/2 for Myasthenia Gravis. He tolerated the procedure without complications, with 3 L of 5% albumin. He will RTC for his next TPE procedure in three weeks. Franco Curry MD, PGY-4 Date/Time:02/07/2017, 11:54 AM I have reviewed the notes, assessments, and/or procedures performed by Dr. Curry, I concur with her/his documentation of Jacinto Aggarwal. Shala Raya MD after 02/06/2017 Insurance Payer Benefit Subscriber ID Type Phone Address Plan / Group MEDICARE MEDICARE xxxxxxxxxx Medicare [place], [place] PART A AND B [employer] xxxxxxxxxxxx HMO [place] ARE[employer]/HMO BLUE ESSENTIALS Advance Directives Patient has advance care planning documents on file. For more information, florencio tamayo contact: Daniel Guillen [address] [place] [address]
== END | disposition home or self-care (01) ==
LOC: OR 11:00
PROVIDERS: ATTEND Internal Medicine Gastroenterology
DX: K22.2 Esophageal obstruction (principal); K29.70 Gastritis, unspecified, without bleeding; K21.0 Gastro-esophageal reflux disease with esophagitis; K31.89 Other diseases of stomach and duodenum; K44.9 Diaphragmatic hernia without obstruction or gangrene; Z71.3 Dietary counseling and surveillance; E66.3 Overweight; G47.30 Sleep apnea, unspecified; E07.9 Disorder of thyroid, unspecified; G70.00 Myasthenia gravis without (acute) exacerbation; Z01.810 Encounter for preprocedural cardiovascular examination; Z01.812 Encounter for preprocedural laboratory examination; Z79.82 Long term (current) use of aspirin; Z68.27 Body mass index [BMI] 27.0-27.9, adult; Z87.891 Personal history of nicotine dependence
CPT/HCPCS: 36415; 43239; 43249; 85025; 93005; J2704; 43450

== ENCOUNTER → 2020-03-09 | Outpatient (CLI) | payer MEDICARE, BC ==
[~2020-03-09] MED LIST changes: -PROPOFOL IV EMULSION 10 MG/ML 20 ML VIAL ONE
== END ==
LOC: RAD 08:31
PROVIDERS: ATTEND Family Medicine
DX: I49.3 Ventricular premature depolarization (principal)
CPT/HCPCS: 93306

== ENCOUNTER 2020-10-12 09:42 | Emergency (ER) | payer MEDICARE, BC ==
[~2020-10-12] VITALS: Ht 180.3 cm; Wt 81.6 kg
[~2020-10-12 09:42] MED LIST changes: -ASPIRIN 81 MG CHEW TAB PO ONE; -CIPRO500 MG PO; -PREDNISONE20 MG PO; -SODIUM CHLORIDE 0.9% 1000ML 1,000 ML IV STA; -VENTOLIN HFA18 GM INH
[2020-10-12] MEDS ORDERED: CLONAZEPAM 0.5 MG TAB PO ONE (11:00)
[2020-10-12] MEDS ORDERED: LORAZEPAM 0.5 MG TAB PO ONE (11:15)
[2020-10-12] MEDS ORDERED: LORAZEPAM 0.5 MG TAB ONE (11:18)
[2020-10-12] MEDS ORDERED: PREDNISONE20 MG PO (19:22)
[2020-10-12] MEDS ORDERED: CIPRO500 MG PO (19:22)
[2020-10-12] MEDS ORDERED: VENTOLIN HFA18 GM INH (19:22)
== END 2020-10-12 11:37 | disposition home or self-care (01) ==
LOC: FSED 09:48
DX: G25.81 Restless legs syndrome (principal); G70.00 Myasthenia gravis without (acute) exacerbation; E03.9 Hypothyroidism, unspecified; F32.9 Major depressive disorder, single episode, unspecified
CPT/HCPCS: 99282

== ENCOUNTER → 2020-10-12 | Emergency (ER) | payer MEDICARE, BC ==
[~2020-10-12] VITALS: Ht 180.3 cm; Wt 81.6 kg
[~2020-10-12] MED LIST changes: +ASPIRIN 81 MG CHEW TAB PO ONE; +CIPRO500 MG PO; +PREDNISONE20 MG PO; +SODIUM CHLORIDE 0.9% 1000ML 1,000 ML IV STA; +VENTOLIN HFA18 GM INH
[2020-10-12 18:02] LABS: CLARITY,URINE SL CLOUDY (CLEAR); COLOR,URINE STRAW (YELLOW); KETONES,URINE NEGATIVE (NEGATIVE); LEUKOCYTE ESTERASE ,URINE NEGATIVE (NEGATIVE); NITRITE,URINE NEGATIVE (NEGATIVE); PROTEIN,URINE DIPSTICK 2+ (NEGATIVE); URINE UROBILINOGEN 0.2 mg/dL (0.2 - 1)
[2020-10-12 18:02] LABS: BASOPHILS % 0.2 % (0.0-1.0); HEMATOCRIT 41.2 % (38.2-49.6); HEMOGLOBIN 13.6 g/dL (14.0-18.0); LYMPHOCYTES # (AUTO) 0.5 (1.0-3.2); MEAN CORPUSCULAR HEMOGLOBIN 31.7 pg (28-32); MONOCYTES # (AUTO) 0.2 (0.2-0.8); MONOCYTES % 3.3 % (4.4-11.3); NEUTROPHILS # (AUTO) 3.9 (2.1-6.9); NEUTROPHILS % 85.2 % (38.7-80.0); RED BLOOD COUNT 4.29 x10e6/uL (4.3-5.7)
[2020-10-12 18:05] LABS: PLATELET COUNT 92 x10e3/uL (140-360)
[2020-10-12 18:19] LABS: BACTERIA,URINE MANY /HPF; EPITHELIAL CELLS,URINE FEW /LPF; MUCUS,URINE FEW (RARE); RBC,URINE 0-5 /HPF (0-5)
[2020-10-12 18:21] LABS: ALBUMIN 3.7 g/dL (3.5-5.0); ALBUMIN/GLOBULIN RATIO 1.1 (0.8-2.0); ANION GAP 21.3 mmol/L (8-16); CALCIUM 8.7 mg/dL (8.4-10.2); CREATININE, SERUM 1.13 mg/dL (0.72-1.25); POTASSIUM 4.3 mmol/L (3.5-5.1)
[2020-10-12 18:31] LABS: CREATINE KINASE MB 19.7 ng/mL (0-5.0)
== END | disposition home or self-care (01) ==
LOC: ER 17:05
DX: R53.1 Weakness (principal); U07.1 COVID-19; N39.0 Urinary tract infection, site not specified; R29.6 Repeated falls; E03.9 Hypothyroidism, unspecified; G70.00 Myasthenia gravis without (acute) exacerbation; K21.9 Gastro-esophageal reflux disease without esophagitis
CPT/HCPCS: 36415; 70450; 71045; 72125; 80053; 81001; 82550; 82553; 84484; 85025; 99283; U0002

== ENCOUNTER → 2021-11-30 | Day surgery (SDC) | payer MEDICARE, BC ==
[2021-11-27 11:03] LABS: BASOPHILS % 0.7 % (0.0-1.0); EOSINOPHILS # (AUTO) 0.2 (0.0-0.4); EOSINOPHILS % 3.6 % (0.0-6.0); HEMATOCRIT 37.6 % (38.2-49.6); HEMOGLOBIN 11.7 g/dL (14.0-18.0); LYMPHOCYTES % 16.9 % (18.0-39.1); MEAN CORPUSCULAR HEMOGLOBIN 31.9 pg (28-32); MEAN CORPUSCULAR HGB CONC 31.1 g/dL (31-35); MEAN CORPUSCULAR VOLUME 102.5 fL (81-99); MONOCYTES # (AUTO) 0.6 (0.2-0.8); MONOCYTES % 9.4 % (4.4-11.3); NEUTROPHILS % 68.7 % (38.7-80.0); PLATELET COUNT 143 x10e3/uL (140-360); RED BLOOD COUNT 3.67 x10e6/uL (4.3-5.7); RED CELL DISTRIBUTION WIDTH 12.8 % (11.7-14.4)
[~2021-11-30] MED LIST changes: +CARBIDOPA-LEVO1 EACH PO; +CIPRO500 MG PO; +FINASTERIDE5 MG PO; +IMURAN50 MG PO; +MECLIZINE HCL12.5 MG PO; +MIDODRINE HCL2.5 MG PO; +OMEPRAZOLE40 MG PO; +PREDNISONE20 MG PO; +VENTOLIN HFA18 GM INH; +XARELTO20 MG PO
[2021-11-30 08:20] VITALS: BP 120/67
== END | disposition home or self-care (01) ==
LOC: OR 08:04
PROVIDERS: ATTEND Internal Medicine Gastroenterology
DX: K22.2 Esophageal obstruction (principal); K29.50 Unspecified chronic gastritis without bleeding; K31.A11 Gastric intestinal metaplasia without dysplasia, involving the antrum; K44.9 Diaphragmatic hernia without obstruction or gangrene; E66.3 Overweight; E03.9 Hypothyroidism, unspecified; G70.00 Myasthenia gravis without (acute) exacerbation; F41.9 Anxiety disorder, unspecified; I48.91 Unspecified atrial fibrillation; Z01.810 Encounter for preprocedural cardiovascular examination; Z01.812 Encounter for preprocedural laboratory examination; Z79.82 Long term (current) use of aspirin; Z79.02 Long term (current) use of antithrombotics/antiplatelets; Z79.899 Other long term (current) drug therapy; Z68.27 Body mass index [BMI] 27.0-27.9, adult; Z87.891 Personal history of nicotine dependence
CPT/HCPCS: 36415; 43239; 85025; 88305; 88312; 88342; 93005

== ENCOUNTER 2022-01-13 14:55 | Emergency (ER) | payer MEDICARE, BC ==
[~2022-01-13] VITALS: Ht 180.3 cm; Wt 81.6 kg
== END 2022-01-13 18:48 | disposition home or self-care (01) ==
LOC: ER 15:37
DX: G25.81 Restless legs syndrome (principal); E03.9 Hypothyroidism, unspecified; F32.A Depression, unspecified; K21.9 Gastro-esophageal reflux disease without esophagitis; M54.9 Dorsalgia, unspecified; G89.29 Other chronic pain
CPT/HCPCS: 99282

== ENCOUNTER 2022-06-11 14:51 | Emergency (ER) | payer MEDICARE, BC ==
[~2022-06-11] VITALS: Ht 180.3 cm; Wt 81.6 kg
[2022-06-11] MEDS ORDERED: LIDOCAINE HCL 1% LOCAL INJ 20 ML VIAL INJ ONE (15:30)
== END 2022-06-11 17:05 | disposition home or self-care (01) ==
LOC: ER 14:59
DX: S51.012A Laceration without foreign body of left elbow, initial encounter (principal); W01.0XXA Fall on same level from slipping, tripping and stumbling without subsequent striking against object, initial encounter; Y93.01 Activity, walking, marching and hiking; Y92.89 Other specified places as the place of occurrence of the external cause; E03.9 Hypothyroidism, unspecified; F32.A Depression, unspecified; K21.9 Gastro-esophageal reflux disease without esophagitis; M54.9 Dorsalgia, unspecified; G89.29 Other chronic pain
CPT/HCPCS: 12002; 73080; 99283; J2001

== ENCOUNTER 2024-11-12 12:31 | Inpatient (IN) | payer MEDICARE, BC ==
[~2024-11-12] VITALS: Ht 182.9 cm; Wt 88.5 kg
[2024-11-12] MEDS: SODIUM CHLORIDE 0.9% 1000ML 1,000 ML IV STA ×2 (13:20→14:24)
[2024-11-12] MEDS: ACETAMINOPHEN 1000 MG/100 ML IV STA (13:28)
[2024-11-12 13:29] LABS: BASOPHILS % 0.3 % (0.0-1.0); EOSINOPHILS % 0.3 % (0.0-6.0); LYMPHOCYTES % 6.6 % (18.0-39.1); MONOCYTES % 6.6 % (4.4-11.3); NEUTROPHILS % 85.6 % (38.7-80.0); RED CELL DISTRIBUTION WIDTH 13.6 % (11.7-14.4)
[2024-11-12 13:42] LABS: LEUKOCYTE ESTERASE ,URINE LARGE (NEGATIVE); PROTEIN,URINE DIPSTICK 2+ (NEGATIVE); URINE UROBILINOGEN 0.2 mg/dL (0.2 - 1)
[2024-11-12 13:53] LABS: INR 1.53
[2024-11-12 13:55] LABS: WBC,URINE (MAN) >50 /HPF (0-5)
[2024-11-12 13:56] LABS: EPITHELIAL CELLS,URINE FEW /LPF
[2024-11-12 14:00] LABS: EST GLOMERULAR FILTRATION RATE 58.0 ML/MIN (>=60)
[2024-11-12 14:05] LABS: STREPTOCOCCUS GRP A ANTIGEN NEGATIVE (NEGATIVE)
[2024-11-12 14:07] LABS: CORONAVIRUS COVID-19 AG POSITIVE (NEGATIVE)
[2024-11-12 14:30] LABS: B-TYPE NATRIURETIC PEPTIDE2 497.1 pg/mL (0-100)
[2024-11-12] MEDS ORDERED: ONDANSETRON HCL INJ 2MG/ML 2ML 2 MG/ML VIAL IV PRN (14:45)
[2024-11-12] MEDS: SODIUM CHLORIDE 0.9% 1000ML 1,000 ML IV SCH (16:00)
[2024-11-12 16:45] VITALS: PULSE 72; RESP 22; TEMP 98.3
[2024-11-12 17:18] VITALS: BP 103/50; PULSE 68; RESP 16; TEMP 98.3; O2SAT 94
[2024-11-12] MEDS: MIDODRINE 2.5 MG TAB PO SCH (17:44)
[2024-11-12 19:05] VITALS: BP 103/50; PULSE 68; RESP 16; TEMP 98.3; O2SAT 94
[2024-11-12 19:15] VITALS: BP 103/50; PULSE 68; RESP 16; TEMP 98.3; O2SAT 94
[2024-11-12 20:00] VITALS: BP 118/72; PULSE 60; RESP 18; TEMP 99.2; O2SAT 98
[2024-11-12] MEDS: AZATHIOPRINE 50 MG TAB PO SCH (20:57)
[2024-11-12 21:46] VITALS: BP 118/72; PULSE 60; RESP 18; TEMP 99.2; O2SAT 98
[2024-11-13] VITALS (12 sets, daily range): BP systolic 109–128; BP diastolic 52–89; PULSE 60–115; RESP 18–22; TEMP 97.6–100.9; O2SAT 90–100
[2024-11-13] MEDS: ALBUTEROL/IPRATROPIUM 3 ML NEB NEB PRN (02:40)
[2024-11-13] MEDS: ACETAMINOPHEN 1000 MG/100 ML IV PRN (05:21)
[2024-11-13] MEDS: LEVOTHYROXINE SODIUM 100 MCG TAB PO SCH (05:22)
[2024-11-13] MEDS: LEVOTHYROXINE SODIUM 75 MCG TAB PO SCH (05:22)
[2024-11-13 06:45] LABS: BASOPHILS % 0.2 % (0.0-1.0); EOSINOPHILS % 0.2 % (0.0-6.0); LYMPHOCYTES % 5.8 % (18.0-39.1); MONOCYTES % 8.1 % (4.4-11.3); NEUTROPHILS % 85.2 % (38.7-80.0); RED CELL DISTRIBUTION WIDTH 13.7 % (11.7-14.4)
[2024-11-13 07:07] LABS: EST GLOMERULAR FILTRATION RATE 61.0 ML/MIN (>=60)
[2024-11-13] MEDS: PANTOPRAZOLE SOD 40 MG TABEC PO SCH (08:44)
[2024-11-13] MEDS: FINASTERIDE 5 MG TAB PO SCH (08:44)
[2024-11-13] MEDS: FERROUS SULFATE 325 MG TAB PO SCH (08:45)
[2024-11-13] MEDS: RIVAROXABAN 20 MG TABLET PO SCH (08:45)
[2024-11-14] VITALS (9 sets, daily range): BP systolic 99–133; BP diastolic 59–72; PULSE 58–91; RESP 16–20; TEMP 97.4–98.9; O2SAT 96–100
[2024-11-14 05:49] LABS: BASOPHILS % 0.2 % (0.0-1.0); EOSINOPHILS % 0.6 % (0.0-6.0); LYMPHOCYTES % 11.1 % (18.0-39.1); MONOCYTES % 9.2 % (4.4-11.3); NEUTROPHILS % 78.3 % (38.7-80.0); RED CELL DISTRIBUTION WIDTH 13.7 % (11.7-14.4)
[2024-11-14 06:19] LABS: EST GLOMERULAR FILTRATION RATE 56.0 ML/MIN (>=60)
[2024-11-15] VITALS (11 sets, daily range): BP systolic 118–143; BP diastolic 58–71; PULSE 58–75; RESP 16–20; TEMP 98–98.9; O2SAT 96–100
[2024-11-15] MEDS: HYDROCODONE/APAP 5MG-325MG TAB PO STA (09:12)
[2024-11-16] VITALS (9 sets, daily range): BP systolic 125–149; BP diastolic 60–99; PULSE 55–91; RESP 18–22; TEMP 97.6–98.3; O2SAT 98–100
[2024-11-16] MEDS ORDERED: ACETAMINOPHEN 325 MG TAB PO PRN (00:30)
[2024-11-16] MEDS: HYDROCODONE/APAP 5MG-325MG TAB PO PRN (08:17)
[2024-11-16] MEDS ORDERED: CARBIDOPA/LEVODOPA 10/100 TAB PO SCH (21:00)
[2024-11-17] VITALS (12 sets, daily range): BP systolic 103–153; BP diastolic 51–83; PULSE 60–76; RESP 18–23; TEMP 97.6–98.7; O2SAT 98–100
[2024-11-17] MEDS ORDERED: ONDANSETRON HCL 4 MG ORAL DISINTEGRATING TAB PO PRN (13:30)
[2024-11-17] MEDS: SODIUM CHLORIDE 0.9% 250ML 250 ML ONE (21:45)
[2024-11-18] VITALS (8 sets, daily range): BP systolic 126–151; BP diastolic 65–92; PULSE 60–75; RESP 18–22; TEMP 97.3–98.6; O2SAT 96–100
[2024-11-18 08:23] LABS: BASOPHILS % 0.8 % (0.0-1.0); EOSINOPHILS % 3.5 % (0.0-6.0); LYMPHOCYTES % 13.1 % (18.0-39.1); MONOCYTES % 8.2 % (4.4-11.3); NEUTROPHILS % 73.0 % (38.7-80.0); RED CELL DISTRIBUTION WIDTH 13.2 % (11.7-14.4)
[2024-11-18 08:57] LABS: EST GLOMERULAR FILTRATION RATE 81.0 ML/MIN (>=60)
[2024-11-18] MEDS ORDERED: SODIUM CHLORIDE 0.9% 100 ML ONE (13:15)
== END 2024-11-18 19:00 | DRG 689 ==
LOC: ER 12:38 → ERHOLD 14:44 → MED/SURG3 17:35 → MED/SURG2 11-13 09:47
PROVIDERS: ADMIT Family Medicine; ATTEND Family Medicine
DX: N39.0 Urinary tract infection, site not specified (principal); G93.41 Metabolic encephalopathy; U07.1 COVID-19; N17.9 Acute kidney failure, unspecified; R65.10 Systemic inflammatory response syndrome (SIRS) of non-infectious origin without acute organ dysfunction; E87.20 Acidosis, unspecified; N12 Tubulo-interstitial nephritis, not specified as acute or chronic; G20.A1 Parkinson's disease without dyskinesia, without mention of fluctuations; B96.4 Proteus (mirabilis) (morganii) as the cause of diseases classified elsewhere; G70.00 Myasthenia gravis without (acute) exacerbation; Z11.52 Encounter for screening for COVID-19; E03.9 Hypothyroidism, unspecified; K21.9 Gastro-esophageal reflux disease without esophagitis; R53.81 Other malaise; M17.12 Unilateral primary osteoarthritis, left knee; M54.9 Dorsalgia, unspecified; G25.81 Restless legs syndrome; F32.A Depression, unspecified; Z79.01 Long term (current) use of anticoagulants; Z79.890 Hormone replacement therapy
CPT/HCPCS: 36415; 70450; 71045; 71250; 72125; 74176; 80053; 81001; 82550; 83518; 83605; 83735; 83880; 84484; 85025; 85610; 85730; 87040; 87070; 87071; 87086; 87186; 87205; 93005; 94640; 94799; 99252; 99284; J0690; J2470; J2543; J7030; J7050